=== PATIENT | female | born 1970 | race African-American/Black ===

== ENCOUNTER 2016-12-13 18:20 | Emergency (ER) | payer MEDICAID ==
[~2016-12-13] VITALS: Ht 172.7 cm; Wt 75.5 kg
[~2016-12-13 18:20] MED LIST: NORV5TAB PO; SUMA25TA2 PO
[2016-12-13 18:23] VITALS: BP 137/92; PULSE 112; RESP 14; TEMP 98.1; O2SAT 98
[2016-12-13] MEDS ORDERED: HYDR-3583 PO (18:57)
[2016-12-13] MEDS ORDERED: AMLO10 PO (18:57)
[2016-12-13] MEDS ORDERED: SUMA25TA2 PO (18:57)
[2016-12-13] MEDS ORDERED: ALPR.5 PO (18:57)
--- NOTE | 2016-12-13 19:47 | PD ---
HPI Chief Complaint: Pain: Acute or Chronic Time Seen by Provider: 19:45 Travel History International Travel<30 days: No Contact w/Intl Traveler<30days: No Traveled to known affect area: No History of Present Illness HPI 46-year-old black female presents emergency Department with right knee pain over the past week. She states that the pain is worse with weightbearing and walking. Some relief with elevation. She denies any direct trauma. No laxity or instability. She denies any prior injury. She denies sports in high school. 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 She denies any recent illness. Pain is mild to moderate. Worse with walking and weightbearing. PFSH Past Medical History Arthritis: No Asthma: No Autoimmune Disease: No Blood Disorders: No Anxiety: Yes Depression: No Heart Rhythm Problems: Yes ('FAST HEART RATE") Cancer: Yes (CERVICAL PRE-CANCEROUS) Cardiovascular Problems: Yes (HTN) High Cholesterol: No Chemotherapy: No Chest Pain: No Congestive Heart Failure: No COPD: No Cerebrovascular Accident: No Diabetes: No Diminished Hearing: No Endocrine: No Gastrointestinal Disorders: Yes (ABD PAIN, gastroporesis) GERD: No Glaucoma: No Genitourinary: No Headaches: Yes Hepatitis: No Hiatal Hernia: Yes Heparin Induced Thrombocytopen: No Hypertension: Yes Immune Disorder: No Implanted Vascular Access Dvce: No Musculoskeletal: Yes (BACK PAIN, ) Neurologic: Yes (MIGRAINES) Psychiatric: Yes Reproductive: Yes (FIBROIDS, PRECANCEROUS CELLS, HAD COMPLETE HYSTERECTOMY) Respiratory: Yes (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) Immunizations Current: No Migraines: Yes (last over 1 year ago.) Myocardial Infarction: No Radiation Therapy: No Seizures: No Sickle Cell Disease: No Sleep Apnea: No Thyroid Disease: No Ulcer: No Influenza Vaccination: No PNEUMOCCOCAL Vaccine (Year): 2 ?: Not : 3 Para: 3 Ovarian Cysts: Yes Tubal Ligation: Yes Past Surgical History Abdominal Surgery: Yes (UTERINE FIBROIDS) AICD: No Appendectomy: No Arteriovenous Shunt: No Cardiac Surgery: No Cholecystectomy: No Ear Surgery: No Endocrine Surgery: No Eye Surgery: No Genitourinary Surgery: No Gynecologic Surgery: Yes (FIBROID REMOVAL) Hysterectomy: Yes Insulin Pump: No Joint Replacement: No Neurologic Surgery: No Oral Surgery: No Pacemaker: No Thoracic Surgery: No Other Surgery: Yes (HEMORRHOID,TUBAL,HYST,ADHESIONS,HAND,POLYPS) Social History Alcohol Use: Yes (SOCIALLY) Tobacco Use: Yes (1 PPD) Substance Use: No Allergies-Medications (Allergen,Severity, Reaction): Coded Allergies: Compazine (Verified Allergy, Severe, DYSTONIA, 12/13/16) Reglan (Verified Allergy, Severe, ITCH, 12/13/16) Zofran (Verified Allergy, Severe, TONGUE SWELLING, 12/13/16) Reported Meds & Prescriptions Reported Meds & Active Scripts Active Reported Sumatriptan (Sumatriptan Succinate) 25 Mg Tab 25 Mg PO ONCE PRN If a satisfactory response has not been obtained at 2 hours, a second dose may be administered Norvasc (Amlodipine Besylate) 10 Mg Tab 10 Mg PO DAILY Xanax (Alprazolam) 0.5 Mg Tab 0.5 Mg PO Q4H PRN Hydrocodone-Acetaminophen 10-325 mg Tab 1 Tab PO Q4H PRN Review of Systems Except as stated in HPI: all other systems reviewed are Neg Physical Exam Narrative GENERAL: Well-developed, well-nourished in no acute distress. Nontoxic appearing. HEAD: Normocephalic, atraumatic. EYES: Pupils equal round and reactive. Extraocular motions intact. No scleral icterus. No injection or drainage. ENT: TMs clear without erythema. The external auditory canals clear. Nose: clear . Posterior pharynx is pink and moist. No tonsillar edema or exudate. Uvula midline. Airway patent. NECK: Trachea midline.Supple, nontender, moves head freely. No central bony tenderness or spasm. CARDIOVASCULAR: Regular rate and rhythm without murmurs, gallops, or rubs. RESPIRATORY: Clear to auscultation. Breath sounds equal bilaterally. No wheezes , rales, or rhonchi. GASTROINTESTINAL: Abdomen soft, non-tender, nondistended. No hepato-splenomegaly , or palpable masses. No guarding. EXTREMITIES: No clubbing, cyanosis, or edema. No joint tenderness, effusion, or edema noted. Examination of the right lower extremity reveals no obvious joint effusion. Patient has full range of motion. No laxity. Patient does have meniscal pain on Apley grind. She has no pain in the foot, ankle or hip. She has intact sensation with good distal pulses. BACK: Nontender without deformity or crepitance. No flank tenderness. Data Data Last Documented VS Vital Signs Date Time Temp Pulse Resp B/P Pulse Ox O2 Delivery O2 Flow Rate FiO2 12/13/16 18:23 98.1 112 14 137/92 98 MDM Medical Decision Making Medical Screen Exam Complete: Yes Emergency Medical Condition: Yes Medical Record Reviewed: Yes Differential Diagnosis MDM: High Differential diagnoses: Fracture, sprain, strain, dislocation, contusion, neurovascular injury Narrative Course Patient's evaluation reveals meniscal pain but no evidence of an acute injury. This is right knee pain Diagnosis Primary Impression: Right knee pain Qualified Code: M25.561 - Acute pain of right knee Patient Instructions: General Instructions Additional Instructions: Rest. Elevation. Ice packs for the next 3 days. Erasmo wrap. Limit weightbearing. Medications as directed Follow-up with an orthopedist or your doctor in one week. Return to the ER if any problems Med/Other Pt SpecificInfo: Prescription(s) given Disposition: 01 DISCHARGE HOME Condition: Stable Jairo Lawler Dec 13, 2016 19:47
[2016-12-13] MEDS ORDERED: DICL75TA PO (19:50)
== END 2016-12-13 20:01 | disposition home or self-care (01) ==
LOC: NEPB 18:20
DX: M25.561 Pain in right knee (principal); I10 Essential (primary) hypertension; F17.200 Nicotine dependence, unspecified, uncomplicated; Z87.39 Personal history of other diseases of the musculoskeletal system and connective tissue; Z86.79 Personal history of other diseases of the circulatory system; Z87.19 Personal history of other diseases of the digestive system; Z86.69 Personal history of other diseases of the nervous system and sense organs; Z86.59 Personal history of other mental and behavioral disorders; Z87.42 Personal history of other diseases of the female genital tract; Z87.09 Personal history of other diseases of the respiratory system
CPT/HCPCS: 99283

== ENCOUNTER 2017-01-01 23:21 | Emergency (ER) | payer MEDICAID ==
[~2017-01-01] VITALS: Ht 172.7 cm; Wt 80.0 kg
[~2017-01-01 23:21] MED LIST changes: +ALPR.5 PO; +AMLO10 PO; +DICL75TA PO; +HYDR-3583 PO; -NORV5TAB PO
[2017-01-01 23:24] VITALS: BP 127/84; PULSE 104; RESP 16; TEMP 98.2; O2SAT 98
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
[2017-01-02] MEDS ORDERED: KETOROLAC TROMETHAMINE 60 MG/2 ML (IM) VIAL IM ONE (03:30)
[2017-01-02 03:44] VITALS: BP 128/79
== END 2017-01-02 03:46 | disposition home or self-care (01) ==
LOC: NEPE 23:21
DX: S09.90XA Unspecified injury of head, initial encounter (principal); R11.0 Nausea; I10 Essential (primary) hypertension; F17.210 Nicotine dependence, cigarettes, uncomplicated; Y04.2XXA Assault by strike against or bumped into by another person, initial encounter
CPT/HCPCS: 70450

== ENCOUNTER 2017-06-02 15:59 | Observation (INO) | payer MEDICAID ==
[~2017-06-02] VITALS: Ht 172.7 cm; Wt 78.0 kg
[~2017-06-02 15:59] MED LIST changes: -DICL75TA PO
[2017-06-02 16:00] VITALS: BP 164/83; PULSE 81; RESP 19; TEMP 99.2; O2SAT 99
--- NOTE | 2017-06-02 16:07 | PD ---
Physical Exam Date Seen by Provider: Jun 02, 2017 Time Seen by Provider: 16:05 Narrative 46 YOBF C/O ABD PAIN FOR 2 DAYS. H/O CHRONIC ABD PAIN. +N/V/MALAISE. 07/26 PAIN VS REVIEWED WAITING FOR BED PLACEMENT Data Data Last Documented VS Vital Signs Date Time Temp Pulse Resp B/P Pulse Ox O2 Delivery O2 Flow Rate FiO2 06/02/17 16:00 99.2 81 19 164/83 99 MDM Supervised Visit with TAMMY: Jairo Pride Jun 02, 2017 16:07
[2017-06-02] MEDS ORDERED: SODIUM CHLOR 0.9% 1000 ML INJ 1,000 ML IV SCH ×3 (16:44→21:06)
[2017-06-02] MEDS ORDERED: FAMOTIDINE 20 MG/2 ML VIAL IV PUSH ONE (16:45)
[2017-06-02] MEDS ORDERED: PANTOPRAZOLE SODIUM 40 MG VIAL IVP ONE (16:45)
[2017-06-02] MEDS ORDERED: MORPHINE SULFATE 4 MG/ML INJ IV PUSH ONE ×2 (17:00→20:45)
[2017-06-02] MEDS ORDERED: PROMETHAZINE INJ 25 MG/ML VIAL IM ONE ×2 (17:00→19:30)
--- NOTE | 2017-06-02 17:09 | PD ---
HPI Chief Complaint: Abdominal Pain Time Seen by Provider: 17:03 Travel History International Travel<30 days: No Contact w/Intl Traveler<30days: No Traveled to known affect area: No History of Present Illness HPI 46- year old female presents to the ED complaining of abdominal pain. The patient reports that the pain is in her RUQ and LUQ abdomen for the past two days. She reports she has associated nausea and vomiting for the past two days and has been unable to keep anything down. She describes the pain as sharp and burning, and reports that it is intermittent. She currently rates her pain as a 10/10. She states she took some of her daughter's medicine which she believes was Zantac, and had no relief because she was unable to keep it down. The patient had multiple abdominal surgeries which include: bilateral oophorectomy, hemorrhoidectomy, hysterectomy, and tubal ligation. The patient reports that her medications include Hydrocodone and muscle relaxers, she denies the use of any blood thinners. She denies any vaginal discharge. PFSH Past Medical History Arthritis: No Asthma: No Autoimmune Disease: No Blood Disorders: No Anxiety: Yes Depression: No Heart Rhythm Problems: Yes ('FAST HEART RATE") Cancer: Yes (CERVICAL PRE-CANCEROUS) Cardiovascular Problems: Yes (HTN) High Cholesterol: No Chemotherapy: No Chest Pain: No Congestive Heart Failure: No COPD: No Cerebrovascular Accident: No Diabetes: No Diminished Hearing: No Endocrine: No Gastrointestinal Disorders: Yes (ABD PAIN, gastroporesis) GERD: No Glaucoma: No Genitourinary: No Headaches: Yes Hepatitis: No Hiatal Hernia: Yes Heparin Induced Thrombocytopen: No Hypertension: Yes Immune Disorder: No Implanted Vascular Access Dvce: No Musculoskeletal: Yes (BACK PAIN, ) Neurologic: Yes (MIGRAINES) Psychiatric: Yes Reproductive: Yes (FIBROIDS, PRECANCEROUS CELLS, HAD COMPLETE HYSTERECTOMY) Respiratory: Yes (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) Immunizations Current: No Migraines: Yes (last over 1 year ago.) Myocardial Infarction: No Radiation Therapy: No Seizures: No Sickle Cell Disease: No Sleep Apnea: No Thyroid Disease: No Ulcer: No PNEUMOCCOCAL Vaccine (Year): 2 ?: Unknown : 3 Para: 3 Ovarian Cysts: Yes Tubal Ligation: Yes Past Surgical History Abdominal Surgery: Yes (UTERINE FIBROIDS) AICD: No Appendectomy: No Arteriovenous Shunt: No Cardiac Surgery: No Cholecystectomy: No Ear Surgery: No Endocrine Surgery: No Eye Surgery: No Genitourinary Surgery: No Gynecologic Surgery: Yes (FIBROID REMOVAL) Hysterectomy: Yes Insulin Pump: No Joint Replacement: No Neurologic Surgery: No Oral Surgery: No Pacemaker: No Thoracic Surgery: No Other Surgery: Yes (HEMORRHOID,TUBAL,HYST,ADHESIONS,HAND,POLYPS) Social History Alcohol Use: Yes (SOCIALLY) Tobacco Use: Yes (1 PPD) Substance Use: No Allergies-Medications (Allergen,Severity, Reaction): Coded Allergies: metoclopramide (Unverified Allergy, Severe, ITCH, 05/31/17) ondansetron (Unverified Allergy, Severe, TONGUE SWELLING, 05/31/17) prochlorperazine (Unverified Allergy, Severe, DYSTONIA, 05/31/17) Reported Meds & Prescriptions Reported Meds & Active Scripts Active Reported Omeprazole 40 Mg Cap 40 Mg PO DAILY Sumatriptan (Sumatriptan Succinate) 25 Mg Tab 25 Mg PO ONCE PRN If a satisfactory response has not been obtained at 2 hours, a second dose may be administered Norvasc (Amlodipine Besylate) 10 Mg Tab 10 Mg PO DAILY Xanax (Alprazolam) 0.5 Mg Tab 0.5 Mg PO Q4H PRN Hydrocodone-Acetaminophen 10-325 mg Tab 1 Tab PO Q4H PRN Review of Systems General / Constitutional: No: Fever, Chills, Weight Gain, Weight Loss, Other Eyes: No: Diploplia, Blurred Vision, Photophobia, Drainage, Redness, Foreign Body Sensation, Pain, Tearing, Blind Spots, Visual changes, Blindness, Other HENT: No: Headaches, Vertigo, Lightheadedness, Sore Throat, Rhinitis, Rhinorrhea, Congestion, Nosebleed, Neck Stiffness, Neck Pain, Masses, Gingival Bleeding, Dental Difficulties, Ear Discharge, Earache, Other Cardiovascular: No: Chest Pain or Discomfort, Palpitations, Irregular Rhythm, Tachycardia, Diaphoresis, Syncope, Dyspnea on exertion, Varicosities, Edema, Cyanosis, Varicosities, Phlebitis, Claudication, Other Respiratory: No: Cough, Shortness of Breath, Wheezing, Sneezing, Orthopnea, Hemoptysis, Stridor, Night Sweats, Pleuritic Pain, Other Gastrointestinal: Positive: Nausea, Vomiting, Abdominal Pain, No: Diarrhea, Hematemesis, Hematochezia, Constipation, Changes in Bowel Habits, Indigestion, Dysphagia, Loss of Appetite, Other Genitourinary: No: Urgency, Frequency, Dysuria, Nocturia, Hematuria, Decreased Urinary Output, Oliguria, Hesitancy, Dribbling, Incontinence, Pelvic Pain, Flank Pain, Dyspareunia, Discharge, Dysmenorrhea, Menorrhagia, Metorrhagia, Vaginal Bleeding, Other Musculoskeletal: No: Myalgias, Arthralgias, Limited ROM, Weakness, Cramping, Edema, Pain, Atrophy, Other Skin: No Rash, No Itching, No Dryness, No Lumps, No Hives, No Change in Pigmentation, No Change in nails, No Alopecia, No Lesions, No Breast Lumps, No Breast Tenderness, No Breast Swelling, No Other Neurologic: No: Weakness, Dizziness, Syncope, Focal Abnormalities, Coordination Problem, Tremor, Ataxia, Headache, Change in Mentation, Slurred Speech, Paresthesia, Incontinence, Seizures, Sensory Disturbance, Other Psychiatric: No: Anxiety, Depression, Suicidal Ideations, Disorder of Thought, Mood Disorder, Substance Abuse, Homicidal Ideation, Other Endocrine: No: Heat Intolerance, Cold Intolerance, Polyuria, Polydipsia, Other Hematologic/Lymphatic: No: Easy Bruising, Lymph Node Enlargement, Other Physical Exam Narrative GENERAL: SKIN: Warm and dry. HEAD: Atraumatic. Normocephalic. EYES: Pupils equal and round. No scleral icterus. No injection or drainage. ENT: No nasal bleeding or discharge. Mucous membranes pink and moist. NECK: Trachea midline. No JVD. CARDIOVASCULAR: Regular rate and rhythm. No S3, S4, or murmurs. RESPIRATORY: No accessory muscle use. Clear to auscultation. Breath sounds equal bilaterally. No wheezing, rales, or rhonchi. GASTROINTESTINAL: Tender to palpation in RUQ and LUQ, more so in RUQ. Abdomen soft, nondistended. Hepatic and splenic margins not palpable. MUSCULOSKELETAL: Extremities without clubbing, cyanosis, or edema. No obvious deformities. NEUROLOGICAL: Awake and alert. No obvious cranial nerve deficits. Motor grossly within normal limits. Five out of 5 muscle strength in the arms and legs. Normal speech. PSYCHIATRIC: Appropriate mood and affect; insight and judgment normal. Data Data Last Documented VS Vital Signs Date Time Temp Pulse Resp B/P Pulse Ox O2 Delivery O2 Flow Rate FiO2 06/02/17 19:00 85 16 186/105 96 Room Air 06/02/17 16:00 99.2 Orders Complete Blood Count With Diff (06/02/17 16:44) Comprehensive Metabolic Panel (06/02/17 16:44) Lipase (06/02/17 16:44) Lactic Acid (06/02/17 16:44) Urinalysis - C+S If Indicated (06/02/17 16:44) Iv Access Insert/Monitor (06/02/17 16:44) Pantoprazole Inj (Protonix Inj) (06/02/17 16:45) Sodium Chlor 0.9% 1000 Ml Inj (Ns 1000 M (06/02/17 16:44) Famotidine Inj (Pepcid Inj) (06/02/17 16:45) Promethazine Inj (Phenergan Inj) (06/02/17 17:00) Morphine Inj (Morphine Inj) (06/02/17 17:00) Ct Abd/Pel W Iv Contrast(Rout) (06/02/17 16:55) Vascular Access Team Consult/P PRN (06/02/17 17:28) Vascular Poc Ultrasound (06/02/17 ) Promethazine Inj (Phenergan Inj) (06/02/17 19:30) Iohexol 350 Inj (Omnipaque 350 Inj) (06/02/17 19:17) Diphenhydramine Inj (Benadryl Inj) (06/02/17 19:30) Morphine Inj (Morphine Inj) (06/02/17 20:45) Sodium Chlor 0.9% 1000 Ml Inj (Ns 1000 M (06/02/17 20:32) Admit Order (Ed Use Only) (06/02/17 21:07) Labs Laboratory Tests Test 06/02/17 06/02/17 17:08 17:15 Lactic Acid Level 1.1 mmol/L White Blood Count 6.2 TH/MM3 Red Blood Count 4.55 MIL/MM3 Hemoglobin 14.3 GM/DL Hematocrit 42.0 % Mean Corpuscular Volume 92.3 FL Mean Corpuscular Hemoglobin 31.3 PG Mean Corpuscular Hemoglobin 33.9 % Concent Red Cell Distribution Width 14.0 % Platelet Count 261 TH/MM3 Mean Platelet Volume 9.6 FL Neutrophils (%) (Auto) 81.0 % Lymphocytes (%) (Auto) 17.0 % Monocytes (%) (Auto) 1.9 % Eosinophils (%) (Auto) 0.0 % Basophils (%) (Auto) 0.1 % Neutrophils # (Auto) 5.0 TH/MM3 Lymphocytes # (Auto) 1.1 TH/MM3 Monocytes # (Auto) 0.1 TH/MM3 Eosinophils # (Auto) 0.0 TH/MM3 Basophils # (Auto) 0.0 TH/MM3 CBC Comment DIFF FINAL Differential Comment Sodium Level 141 MEQ/L Potassium Level 3.7 MEQ/L Chloride Level 102 MEQ/L Carbon Dioxide Level 29.6 MEQ/L Anion Gap 9 MEQ/L Blood Urea Nitrogen 13 MG/DL Creatinine 0.81 MG/DL Estimat Glomerular Filtration 93 ML/MIN Rate Random Glucose 123 MG/DL Calcium Level 10.1 MG/DL Total Bilirubin 0.4 MG/DL Aspartate Amino Transf 13 U/L (AST/SGOT) Alanine Aminotransferase 15 U/L (ALT/SGPT) Alkaline Phosphatase 73 U/L Total Protein 10.3 GM/DL Albumin 5.5 GM/DL Lipase 121 U/L [facility] Medical Decision Making Medical Screen Exam Complete: Yes Emergency Medical Condition: Yes Medical Record Reviewed: Yes Interpretation(s) CBC & BMP Diagram 06/02/17 17:15 LFTS WNL Lipase WNL Last Impressions Abdomen/Pelvis CT 06/02/17 1655 Signed Impressions: Service Date/Time: May 19:08 - CONCLUSION: 1. No acute finding on abdomen and pelvic CT. Nonobstructing 2 mm calculus mid pole right kidney. Small hiatal hernia. No bowel obstruction, free air or free fluid. Jairo Oliveros MD Differential Diagnosis Intractable nausea and vomiting versus abdominal pain versus chronic pain versus gastritis versus gastritis versus normal exam Narrative Course 46-year-old female that presents to the ED for evaluation of nausea and vomiting. Patient was properly examined and was found to have signs and symptoms of unclear etiology. Patient does have some tenderness to palpation but appears to be diffuse. Abdomen for the most part is benign but she is actively throwing up. Labs and imaging were ordered. Patient was given Phenergan as she cannot really take anything else. She was given Benadryl morphine. Fluids were given. Labs and imaging came back and showed no sign of acute disease. Patient unfortunately still throwing up. She cannot tolerate by mouth challenge. Patient has been given 50 mg of Phenergan so far and 50 of Benadryl with no relief. No blood noted. Unclear etiology of this but because of her continues vomiting at do recommend observation for this. Call to [facility] placed. Dr Randall agrees to obs. Diagnosis Primary Impression: Nausea & vomiting Qualified Code: R11.2 - Intractable vomiting with nausea, unspecified vomiting type Admitting Information Admitting Physician Requests: Observation Sherif Patel Jun 02, 2017 17:09
[2017-06-02] MEDS ORDERED: OMEP40CA2 PO (18:07)
[2017-06-02 18:26] LABS: ALT (GPT) 15 U/L (10-53); ANION GAP 9 MEQ/L (5-15); AST (GOT) 13 U/L (15-37); BICARBONATE 29.6 MEQ/L (21.0-32.0); BLOOD UREA NITROGEN 13 MG/DL (7-18); CHLORIDE 102 MEQ/L (98-107); GLOMERULAR FILTRATION RATE 93 ML/MIN (>89); POTASSIUM 3.7 MEQ/L (3.5-5.1); SODIUM (NA) 141 MEQ/L (136-145)
[2017-06-02 18:29] LABS: ALKALINE PHOSPHATASE 73 U/L (45-117); TOTAL BILIRUBIN ADULT 0.4 MG/DL (0.2-1.0)
[2017-06-02 18:34] LABS: BASOPHIL % 0.1 % (0.0-2.0); HEMO FLAGS DIFF FINAL; LYMPHOCYTE # 1.1 TH/MM3 (1.0-4.8); MEAN CELL VOLUME 92.3 FL (80.0-100.0); MEAN CORPUSCULAR HEMOGLOBIN 31.3 PG (27.0-34.0); MEAN CORPUSCULAR HGB CONC 33.9 % (32.0-36.0); MONO % 1.9 % (0.0-8.0); PLATELET COUNT 261 TH/MM3 (150-450); RED BLOOD COUNT 4.55 MIL/MM3 (4.00-5.30); WHITE BLOOD COUNT 6.2 TH/MM3 (4.0-11.0)
[2017-06-02 19:00] VITALS: BP 186/105; PULSE 85; RESP 16; O2SAT 96
[2017-06-02] MEDS ORDERED: IOHEXOL 350 MG/ML 10 ML VIAL (for RAD DIAG) IV ONE (19:17)
[2017-06-02] MEDS ORDERED: diphenhydrAMINE HCL 50 MG/ML VIAL IV PUSH ONE (19:30)
--- NOTE | 2017-06-02 20:01 | RADRPT ---
EXAM DATE/TIME: 06/02/2017 19:08 [place] COMPARISON: No previous studies available for comparison. INDICATIONS : Abdomen pain for two days with nausea and vomiting. IV CONTRAST: 98 cc Omnipaque 350 (iohexol) IV ORAL CONTRAST: No oral contrast ingested. RADIATION DOSE: 7.33 CTDIvol (mGy) MEDICAL HISTORY : Hypertension. Hernia, hiatal. SURGICAL HISTORY : Hysterectomy. Tubal ligation. ENCOUNTER: Initial ACUITY: 2 days PAIN SCALE: 10/10 LOCATION: ABDOMEN TECHNIQUE: Volumetric scanning of the abdomen and pelvis was performed. Using automated exposure control and ad justment of the mA and/or kV according to patient size, radiation dose was kept as low as reasonably achievable to obtain optimal diagnostic quality images. DICOM format image data is available electro nically for review and comparison. FINDINGS: Minimal dependent atelectasis in the lungs. No acute findings in the liver, spleen, adrenals, kidneys or pancreas. There is a nonobstructing 2 mm calculus mid pole right kidney. No calcified gallstones or biliary ductal dilatation. There is no bowel obstruction. No free air or free fluid. No adenopathy. CONCLUSION: 1. No acute finding on abdomen and pelvic CT. Nonobstructing 2 mm calculus mid pole right kidney. Sma ll hiatal hernia. No bowel obstruction, free air or free fluid. Jairo Oliveros MD on June 02, 2017 at 19:53 Board Certified Radiologist. This report was verified electronically.
[2017-06-02 21:00] VITALS: BP 166/89; PULSE 85; RESP 16; O2SAT 96
--- NOTE | 2017-06-02 21:12 | HHI.HP ---
HPI Service [facility] Primary Care Physician Sal Cote MD Admission Diagnosis intractable nausea and vomit Diagnoses: (1) Intractable nausea and vomiting Diagnosis: Principal (2) Anxiety Diagnosis: Principal (3) HTN (hypertension) Diagnosis: Principal (4) Tobacco abuse Diagnosis: Principal Travel History International Travel<30 Days: No Contact w/Intl Traveler <30 Da: No Traveled to Known Affected Are: No History of Present Illness This is a 46-year-old female with a PMH of HTN and Anxiety who presented ER with complaints of abdominal pain in addition to multiple episodes of nausea and vomiting x2 days. Denies fever, chills or diarrhea. Reports unable to take PO due to ongoing nausea/vomiting. On arrival, BP 164/83, HR 81, O2 sat 99 % on RA, Temp 99.2. CBC unremarkable. Chemistry essentially unremarkable. CT Abd/Pelvis w/ no acute findings, nonobstructing 2 mm calculus midpole right kidney. U/a pending. S/p multiple doses of Phenergan, Morphine and Pepcid w/ minimal relief. Failed PO challenge. Review of Systems Except as stated in HPI: all other systems reviewed are Neg ROS: 14 point review of systems otherwise negative. Past Family Social History Past Medical History PMH: HTN and Anxiety Past Surgical History PAST SURGICAL HISTORY: Fibroid Removal, Tubal Ligation Allergies: Coded Allergies: metoclopramide (Unverified Allergy, Severe, ITCH, 05/31/17) ondansetron (Unverified Allergy, Severe, TONGUE SWELLING, 05/31/17) prochlorperazine (Unverified Adverse Reaction, Severe, DYSTONIA, 06/02/17) Family History PAST FAMILY HISTORY: Reviewed. No h/o DM or CAD Social History PAST SOCIAL HISTORY: Occasional alcohol. Smokes 1ppd. Negative for drugs. Physical Exam Vital Signs Vital Signs Date Time Temp Pulse Resp B/P Pulse Ox O2 Delivery O2 Flow Rate FiO2 06/02/17 19:00 85 16 186/105 96 Room Air 06/02/17 16:00 99.2 81 19 164/83 99 Physical Exam PE: GENERAL: Middle-aged female in mild distress secondary to ongoing nausea/ vomiting HEENT: PERRLA, EOMI. No scleral icterus or conjunctival pallor. No lid lag or facial droop. CARDIOVASCULAR: Regular rate and rhythm. No obvious murmurs to auscultation. No chest tenderness to palpation. RESPIRATORY: No obvious rhonchi or wheezing. Clear to auscultation. Breath sounds equal bilaterally. GASTROINTESTINAL: Abdomen soft, mild generalized tenderness to palpation, nondistended. BS normal. MUSCULOSKELETAL: Extremities without clubbing, cyanosis, or edema. No obvious deformities. NEUROLOGICAL: Awake, alert and oriented x4. No focal neurologic deficits. Moving both upper and lower extremities spontaneously. Laboratory Laboratory Tests Test 06/02/17 06/02/17 17:08 17:15 Lactic Acid Level 1.1 White Blood Count 6.2 Red Blood Count 4.55 Hemoglobin 14.3 Hematocrit 42.0 Mean Corpuscular Volume 92.3 Mean Corpuscular Hemoglobin 31.3 Mean Corpuscular Hemoglobin 33.9 Concent Red Cell Distribution Width 14.0 Platelet Count 261 Mean Platelet Volume 9.6 Neutrophils (%) (Auto) 81.0 Lymphocytes (%) (Auto) 17.0 Monocytes (%) (Auto) 1.9 Eosinophils (%) (Auto) 0.0 Basophils (%) (Auto) 0.1 Neutrophils # (Auto) 5.0 Lymphocytes # (Auto) 1.1 Monocytes # (Auto) 0.1 Eosinophils # (Auto) 0.0 Basophils # (Auto) 0.0 CBC Comment DIFF FINAL Differential Comment Sodium Level 141 Potassium Level 3.7 Chloride Level 102 Carbon Dioxide Level 29.6 Anion Gap 9 Blood Urea Nitrogen 13 Creatinine 0.81 Estimat Glomerular Filtration 93 Rate Random Glucose 123 Calcium Level 10.1 Total Bilirubin 0.4 Aspartate Amino Transf 13 (AST/SGOT) Alanine Aminotransferase 15 (ALT/SGPT) Alkaline Phosphatase 73 Total Protein 10.3 Albumin 5.5 Lipase 121 Result Diagram: 06/02/17171406/02/171714 Assessment and Plan Problem List: (1) Intractable nausea and vomiting ICD Code: R11.2 Status: Acute (2) Anxiety ICD Code: F41.9 Status: Acute (3) HTN (hypertension) ICD Code: I10 Status: Chronic (4) Tobacco abuse ICD Code: Z72.0 Status: Acute Assessment and Plan A/P: 1. Intractable N/V: w/ associated abdominal pain, no fever, chills or diarrhea. Labs unremarkable. CT Abd/Pelvis w/ no acute findings, images reviewed by me. S/p multiple doses of Phenergan and Morphine w/ minimal relief , failed PO challenge. Admit for Observation, diet as tolerated, IVF, analgesics/antiemetics as needed. Repeat labs in am. 2. Anxiety: On Xanax at home, will switch to Ativan IV as unable to take PO at the moment. 3. HTN: BP 160-180s, likely compounded by nausea/vomiting, not on home medications, monitor BP. 4. Tobacco Abuse: Pt counselled. Ativan/NicoDerm prn if needed. 5. DVT Prophylaxis: SCD/Teds. 6. Social work for d/c planning as needed. 7. Case discussed w/ ER physician at length. Irma Randall MD Jun 02, 2017 21:12
[2017-06-02] MEDS ORDERED: LORazepam 2 MG/ML VIAL IV PUSH PRN (21:15)
[2017-06-02] MEDS ORDERED: TRIMETHOBENZAMIDE INJ 200 MG/2 ML VIAL IM PRN (21:15)
[2017-06-02] MEDS ORDERED: ACETAMINOPHEN/HYDROcodone 325 MG/5 MG TAB PO PRN (21:15)
[2017-06-02] MEDS ORDERED: SODIUM CHLORIDE 0.9% FLUSH 10 ML FLUSH IV FLUSH PRN (21:15)
[2017-06-02] MEDS ORDERED: LACTULOSE SYRUP 20 GM/30 ML CUP PO PRN (21:15)
[2017-06-02] MEDS ORDERED: ONDANSETRON HCL 4 MG/2 ML VIAL IVP PRN (21:15)
[2017-06-02] MEDS ORDERED: SENNOSIDES 8.6 MG TAB PO PRN (21:15)
[2017-06-02] MEDS ORDERED: MAGNESIUM HYDROXIDE SUSP 30 ML CUP PO PRN (21:15)
[2017-06-02] MEDS ORDERED: ACETAMINOPHEN 325 MG TAB PO PRN (21:15)
[2017-06-02] MEDS ORDERED: BISACODYL 10 MG SUPP RECTAL PRN (21:15)
[2017-06-02 21:53] VITALS: BP 166/88
[2017-06-02] MEDS: MORPHINE SULFATE 4 MG/ML INJ IV PRN (23:39)
[2017-06-02] MEDS: PROMETHAZINE INJ 25 MG/ML VIAL IM PRN (23:39)
[2017-06-03] VITALS: BP 158/91; PULSE 88; RESP 20; TEMP 99.7; O2SAT 100
[2017-06-03] MEDS: MORPHINE SULFATE 4 MG/ML INJ IV PRN ×2 (04:48→09:43)
[2017-06-03 05:57] VITALS: BP 130/76; PULSE 92; RESP 18; TEMP 98.6; O2SAT 99
--- NOTE | 2017-06-03 08:53 | HHI.PR ---
Subjective Remarks Follow up for intractable nausea/vomiting. The patient reports feeling slightly better today. Reports intermittent nausea but no vomiting since yesterday. She was able to sleep well. She reports some mild left sided abdominal discomfort which she attributes to the intractable vomiting prior to arrival. Denies fevers /chills. Denies sick contacts. Denies any NSAID use. She states she follows with gastroenterology Dr. Faust for yearly EGD/colonoscopies. She says she was diagnosed with colon polyps and hiatal hernia in the past. She takes prilosec for GERD. Objective Vitals Vital Signs Date Time Temp Pulse Resp B/P Pulse Ox O2 Delivery O2 Flow Rate FiO2 06/03/17 05:57 98.6 92 18 130/76 99 06/03/17 05:21 18 06/03/17 00:00 99.7 88 20 158/91 100 06/02/17 21:53 85 16 166/88 98 06/02/17 21:00 85 16 166/89 96 Room Air 06/02/17 19:00 85 16 186/105 96 Room Air 06/02/17 16:00 99.2 81 19 164/83 99 I/O 06/02/17 06/02/17 06/02/17 06/03/17 06/03/17 06/03/17 07:00 15:00 23:00 07:00 15:00 23:00 Output Total 200 ml Balance -200 ml Output Emesis 200 ml Result Diagram: 06/02/17 1715 06/02/17 1715 Imaging Last Impressions Abdomen/Pelvis CT 06/02/171654 Signed Impressions: Service Date/Time: May 19:08 - CONCLUSION: 1. No acute finding on abdomen and pelvic CT. Nonobstructing 2 mm calculus mid pole right kidney. Small hiatal hernia. No bowel obstruction, free air or free fluid. Jairo Oliveros MD Objective Remarks GENERAL: Well-nourished, well-developed middle aged female patient in [facility]. SKIN: Warm and dry. No rash. HEENT: Normocephalic. Atraumatic.Pupils equal and round. Mucous membranes pink and moist. CARDIOVASCULAR: Regular rate and rhythm. S1, S2 noted. No murmur appreciated. RESPIRATORY: No accessory muscle use. Clear to auscultation. Breath sounds equal bilaterally. GASTROINTESTINAL: Abdomen soft, non-tender, nondistended. Normoactive bowel sounds x4. MUSCULOSKELETAL: No obvious deformities. Extremities without clubbing, cyanosis , or edema. NEUROLOGICAL: Awake and alert. No obvious cranial nerve deficits. Motor grossly within normal limits. Normal speech. PSYCHIATRIC: Appropriate mood and affect; insight and judgment normal. Medications and IVs Current Medications Medications (Trade) Dose Ordered Sig/Ghazala Route Start Time Stop Time Status Last Admin (Ativan Inj) 1 mg Q2H PRN IV PUSH 06/02/17 21:15 (Phenergan Inj) 25 mg Q4H PRN IM 06/02/17 21:15 06/02/17 23:39 (Tigan Inj) 200 mg Q6H PRN IM 06/02/17 21:15 Pantoprazole Sodium 40 mg 40 mg Q12H IV PUSH 06/03/17 09:00 (NS 1000 ml Inj) 1,000 ml @ 100 mls/hr Q10H IV 06/02/17 21:06 06/02/17 23:40 (NS Flush) 2 ml UNSCH PRN IV FLUSH 06/02/17 21:15 (NS Flush) 2 ml BID IV FLUSH 06/03/17 09:00 (Tylenol) 650 mg Q6H PRN PO 06/02/17 21:15 06/03/17 06:06 (Hammond 5-325 Mg) 1 tab Q4H PRN PO 06/02/17 21:15 (Morphine Inj) 2 mg Q3H PRN IV 06/02/17 21:15 06/03/17 04:48 (Isabelle-Colace) 1 tab BID PO 06/03/17 09:00 (Milk Of Magnesia Liq) 30 ml Q12H PRN PO 06/02/17 21:15 (Senokot) 17.2 mg Q12H PRN PO 06/02/17 21:15 (Dulcolax Supp) 10 mg DAILY PRN RECTAL 06/02/17 21:15 (Lactulose Liq) 30 ml DAILY PRN PO 06/02/17 21:15 A/P Problem List: (1) Intractable nausea and vomiting ICD Code: R11.2 Status: Acute (2) Anxiety ICD Code: F41.9 Status: Acute (3) HTN (hypertension) ICD Code: I10 Status: Chronic (4) Tobacco abuse ICD Code: Z72.0 Status: Acute Assessment and Plan 46-year-old female with a PMH of HTN and Anxiety who presented ER with complaints of abdominal pain in addition to multiple episodes of nausea and vomiting x2 days. Intractable N/V: w/ associated abdominal pain, no fever/chills/diarrhea. Labs unremarkable. CT Abd/Pelvis w/ no acute findings, images reviewed by me. S/p multiple doses of Phenergan and Morphine w/ minimal relief, failed PO challenge. Admitted to Observation. Advance diet as tolerated. Supportive treatment with IVF, analgesics/antiemetics as needed. Repeat labs. Anxiety: On Xanax at home, will switch to Ativan IV as unable to take PO at the moment. HTN: BP 160-180s, likely compounded by nausea/vomiting, not on home medications , monitor BP, improved this morning. Tobacco Abuse: Pt counselled. Ativan/NicoDerm prn if needed. DVT Prophylaxis: SCD/Teds. Discharge Planning Discharge pending further clinical improvement and tolerating oral intake. Possibly discharge this afternoon or tomorrow. 1040hrs: Patient requesting additional pain medications, stating IV morphine didn't work. RN reports patient sleeping in room most of the time. Patient did not appear to be in significant pain when I saw her prior. Give Bentyl x1. 1300hrs: Patient tolerated her meals and wants to go home. No further nausea/ vomiting. She is requesting prescription for phenergan. Repeat labs showed hypokalemia, K 3.1, given KCl 40meq po. Stable for discharge. Discharge patient to home Condition on discharge: Improved Heart Healthy Diet as tolerated Ad Antonietta activity Rx written: Phenergan 12.5mg q6h prn N/V #12 Follow-up with primary care physician within 1 week Francoise Nam PA-C Jun 03, 2017 08:53
[2017-06-03] MEDS ORDERED: DOCUSATE SODIUM 50 MG/SENNA 8.6 MG TAB PO SCH (09:00)
[2017-06-03] MEDS ORDERED: SODIUM CHLORIDE 0.9% FLUSH 10 ML FLUSH IV FLUSH SCH (09:00)
[2017-06-03] MEDS ORDERED: PANTOPRAZOLE SODIUM 40 MG VIAL IV PUSH SCH (09:00)
[2017-06-03] MEDS: PROMETHAZINE INJ 25 MG/ML VIAL IM PRN (09:43)
[2017-06-03 11:53] VITALS: BP 135/84; PULSE 78; RESP 18; TEMP 97.8; O2SAT 95
[2017-06-03] MEDS ORDERED: DICYCLOMINE HCL 10 MG CAP PO ONE (12:00)
[2017-06-03 12:19] LABS: BASOPHIL % 0.5 % (0.0-2.0); EOSINOPHIL % 0.2 % (0.0-4.0); HEMO FLAGS DIFF FINAL; LYMPH % 32.9 % (9.0-44.0); LYMPHOCYTE # 2.2 TH/MM3 (1.0-4.8); MEAN CELL VOLUME 90.8 FL (80.0-100.0); MEAN CORPUSCULAR HEMOGLOBIN 31.5 PG (27.0-34.0); MEAN CORPUSCULAR HGB CONC 34.7 % (32.0-36.0); MONO % 7.1 % (0.0-8.0); NEUT % 59.3 % (16.0-70.0); PLATELET COUNT 247 TH/MM3 (150-450); RED BLOOD COUNT 3.74 MIL/MM3 (4.00-5.30); RED CELL DISTRIBUTION WIDTH 14.1 % (11.6-17.2); WHITE BLOOD COUNT 6.7 TH/MM3 (4.0-11.0)
--- NOTE | 2017-06-03 12:44 | HHI.DCPOC ---
Discharge Care Plan Diagnosis: (1) Nausea & vomiting Goals to Promote Your Health * To prevent worsening of your condition and complications * To maintain your health at the optimal level Directions to Meet Your Goals Take your medications as prescribed Follow your dietary instruction Follow activity as directed Keep your appointments as scheduled Take your immunizations and boosters as scheduled If your symptoms worsen call your PCP, if no PCP go to Urgent Care Center or Emergency Room Smoking is Dangerous to Your Health. Avoid second hand smoke Call the 24-hour hour crisis hotline for domestic abuse at Francoise Nam PA-C Jun 03, 2017 12:44
[2017-06-03 12:59] LABS: ALKALINE PHOSPHATASE 50 U/L (45-117); ALT (GPT) 12 U/L (10-53); ANION GAP 8 MEQ/L (5-15); AST (GOT) 17 U/L (15-37); BICARBONATE 27.9 MEQ/L (21.0-32.0); BLOOD UREA NITROGEN 9 MG/DL (7-18); CHLORIDE 107 MEQ/L (98-107); GLOMERULAR FILTRATION RATE 110 ML/MIN (>89); POTASSIUM 3.1 MEQ/L (3.5-5.1); SODIUM (NA) 143 MEQ/L (136-145); TOTAL BILIRUBIN ADULT 0.4 MG/DL (0.2-1.0)
[2017-06-03] MEDS ORDERED: PROM25TA10 PO (13:14)
[2017-06-03] MEDS ORDERED: POTASSIUM CHLORIDE 20 MEQ CONTROLLED RELEASE TAB PO ONE (13:15)
== END 2017-06-03 14:01 | disposition home or self-care (01) ==
LOC: NEPE 15:59 → NEDA 21:08 → NEPFCDU 22:02
PROVIDERS: ADMIT Hospitalist; ATTEND Hospitalist
DX: R11.2 Nausea with vomiting, unspecified (principal); R10.11 Right upper quadrant pain; R10.12 Left upper quadrant pain; I10 Essential (primary) hypertension; F17.200 Nicotine dependence, unspecified, uncomplicated; F41.9 Anxiety disorder, unspecified; K21.9 Gastro-esophageal reflux disease without esophagitis; Z79.899 Other long term (current) drug therapy
CPT/HCPCS: 74177; 76937; 80053; 83605; 83690; 85025; 96361; 96372; 96374; 96375; 96376; 99285; C9113; G0378; J1200; J2270; J2550; J7030; Q9967

== ENCOUNTER 2017-12-12 02:43 | Emergency (ER) | payer MEDICAID ==
[~2017-12-12] VITALS: Ht 167.6 cm; Wt 80.0 kg
[~2017-12-12 02:43] MED LIST changes: +OMEP40CA2 PO; +PROM25TA10 PO
[2017-12-12 02:47] VITALS: BP 148/84; PULSE 101; RESP 22; TEMP 98.9; O2SAT 99
--- NOTE | 2017-12-12 03:02 | PD ---
HPI Chief Complaint: Abdominal Pain Time Seen by Provider: 02:51 Travel History International Travel<30 days: No Contact w/Intl Traveler<30days: No Traveled to known affect area: No History of Present Illness HPI The patient is a 47 year old female who presents to the [facility] emergency department with a history of nausea and vomiting that began yesterday morning, at 9 AM on Tuesday. The patient reports that she has had nausea and vomiting too many times to count. The patient reports that she has lower abdominal pain worse in the right lower quadrant of the abdomen. The patient reports that the pain is a burning sensation. The patient reports that the pain has been constant. She denies any alleviating or aggravating factors per she reports that she last moved her bowels yesterday. She denies having any changes in her bowel movements. The patient does report having a history of chronic intermittent abdominal pain and nausea vomiting in the past that is thought to be related to a history of acid reflux, gastritis, and gastroparesis. The patient is followed by her primary care physician for this, Dr. Coet. The patient is on hydrocodone chronically for chronic abdominal pain as well as chronic back pain. She reports that she has not seen a plating and point assembly supervisor in years. She reports that Dr. Cote recently referred her again to the plating and point assembly supervisor approximately a month ago. The patient reports that she has not been able to keep down her hydrocodone over the last 24 hours. She reports that her Phenergan orally has not been helping. On review of systems otherwise, the patient denies having any recent fevers, cough, congestion, neck pain, chest pain, shortness of breath, urinary symptoms, or neurologic symptoms. [facility] Past Medical History Narrative Medical The patient's past medical history is significant for gastritis, hiatal hernia, acid reflux, gastroparesis, chronic abdominal pain thought to be related to adhesions, history of colon polyps, history of chronic low back pain related to degenerative disc disease, history of anxiety disorder, history of cervical dysplasia, depression, headaches, hypertension. Arthritis: No Asthma: No Autoimmune Disease: No Blood Disorders: No Anxiety: Yes Depression: No Heart Rhythm Problems: Yes ('FAST HEART RATE") Cancer: Yes (CERVICAL PRE-CANCEROUS) Cardiovascular Problems: Yes High Cholesterol: No Chemotherapy: No Chest Pain: No Congestive Heart Failure: No COPD: No Cerebrovascular Accident: No Diabetes: No Diminished Hearing: No Endocrine: No Gastrointestinal Disorders: Yes (GASTROPARESIS ) GERD: Yes Glaucoma: No Genitourinary: No Headaches: Yes Hepatitis: No Hiatal Hernia: Yes Heparin Induced Thrombocytopen: No Hypertension: Yes Immune Disorder: No Implanted Vascular Access Dvce: No Musculoskeletal: Yes (BACK PAIN, ) Neurologic: Yes (MIGRAINES) Psychiatric: Yes Reproductive: Yes (FIBROIDS, PRECANCEROUS CELLS, HAD COMPLETE HYSTERECTOMY) Respiratory: Yes (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 Abdominal Surgery: Yes (UTERINE FIBROIDS) AICD: No Appendectomy: No Arteriovenous Shunt: No Cardiac Surgery: No Cholecystectomy: No Ear Surgery: No Endocrine Surgery: No Eye Surgery: No Genitourinary Surgery: No Gynecologic Surgery: Yes (HYSTERECTOMY, TUBAL LIGATION ) Hysterectomy: Yes Insulin Pump: No Joint Replacement: No Neurologic Surgery: No Oral Surgery: No Pacemaker: No Thoracic Surgery: No Other Surgery: Yes (HEMORRHOID,ADHESIONS,HAND,POLYPS) Social History Alcohol Use: Yes (SOCIALLY) Tobacco Use: Yes (1 PPD) Substance Use: No Allergies-Medications (Allergen,Severity, Reaction): Coded Allergies: metoclopramide (Unverified Allergy, Severe, ITCH, 12/12/17) ondansetron (Unverified Allergy, Severe, TONGUE SWELLING, 12/12/17) prochlorperazine (Unverified Adverse Reaction, Severe, DYSTONIA, 12/12/17) Reported Meds & Prescriptions Reported Meds & Active Scripts Active Phenergan Supp (Promethazine HCl) 25 Mg Supp 25 Mg RECTAL Q6H PRN Phenergan (Promethazine HCl) 25 Mg Tablet 12.5 Mg PO Q6H PRN Reported Omeprazole 40 Mg Cap 40 Mg PO DAILY Sumatriptan (Sumatriptan Succinate) 25 Mg Tab 25 Mg PO ONCE PRN If a satisfactory response has not been obtained at 2 hours, a second dose may be administered Norvasc (Amlodipine Besylate) 10 Mg Tab 10 Mg PO DAILY Xanax (Alprazolam) 0.5 Mg Tab 0.5 Mg PO Q4H PRN Hydrocodone-Acetaminophen 10-325 mg Tab 1 Tab PO Q4H PRN Review of Systems Except as stated in HPI: all other systems reviewed are Neg General / Constitutional: No: Fever Eyes: No: Visual changes HENT: No: Headaches Cardiovascular: No: Chest Pain or Discomfort Respiratory: No: Shortness of Breath Gastrointestinal: Positive: Nausea, Vomiting, Abdominal Pain, No: Diarrhea, Changes in Bowel Habits, Indigestion, Loss of Appetite Genitourinary: No: Dysuria Musculoskeletal: No: Pain Skin: No Rash Neurologic: No: Weakness Psychiatric: No: Depression Endocrine: No: Polydipsia Hematologic/Lymphatic: No: Easy Bruising Physical Exam Narrative General: The patient is a well-developed well-nourished female, lying on her side, intermittently crying on exam. Otherwise in no acute distress she is holding her abdomen. Head and Neck exam: Head is normocephalic atraumatic. Eyes: EOMI, pupils are equal round and reactive to light. Nose: Midline septum with pink mucous membranes Mouth: Dentition unremarkable. Moist mucus membranes. Posterior oropharynx is not erythematous. No tonsillar hypertrophy. Uvula midline. Airway patent. Neck: No palpable lymphadenopathy. No nuchal rigidity. No thyromegaly. Cardiovascular: Sinus tachycardia in the low 100 without murmurs, gallops, or rubs. No pulse deficit to the extremities on simultaneous auscultation and palpation of her radial artery. Lungs: Clear to auscultation bilaterally. No wheezes, rhonchi, or rales. Abdomen: Soft, with tenderness on palpation along bilateral lower quadrants of abdomen and the suprapubic area with pain that is worse on the right compared to the left no guarding, rebound, or rigidity. Normal bowel sounds are audible. No tenderness on palpation specifically over McBurney's point. Extremities: No clubbing, cyanosis, or edema. 2+ pulses in all 4 extremities. No calf tenderness on palpation. Back: No costovertebral angle tenderness to palpation. Neurologic Exam: Grossly nonfocal. Skin Exam: No rash noted. Intact skin that is warm and dry. Data Data Last Documented VS Vital Signs Date Time Temp Pulse Resp B/P (MAP) Pulse Ox O2 Delivery O2 Flow Rate FiO2 12/12/17 06:11 12/12/17 05:47 90 16 98 Room Air 12/12/17 02:47 98.9 Orders Orders Sodium Chlor 0.9% 1000 Ml Inj (Ns 1000 M (12/12/17 03:15) Promethazine Inj (Phenergan Inj) (12/12/17 03:15) Hydromorphone Pf Inj (Dilaudid Pf Inj) (12/12/17 03:30) Complete Blood Count With Diff (12/12/17 03:22) Comprehensive Metabolic Panel (12/12/17 03:22) C-Reactive Protein (Crp) (12/12/17 03:22) Lipase (12/12/17 03:22) Magnesium (Mg) (12/12/17 03:22) Iv Access Insert/Monitor (12/12/17 03:22) Ecg Monitoring (12/12/17 03:22) Oximetry (12/12/17 03:22) Lorazepam Inj (Ativan Inj) (12/12/17 04:15) Abdomen, Flat & Upright (12/12/17 04:33) Ed Urine Pregnancytest Poc (12/12/17 04:33) Sodium Chlor 0.9% 1000 Ml Inj (Ns 1000 M (12/12/17 04:45) Oral Rehydration (12/12/17 04:34) Potassium Chloride (Kcl) (12/12/17 04:45) Promethazine Inj (Phenergan Inj) (12/12/17 05:00) Ed Discharge Order (12/12/17 06:13) Labs Laboratory Tests Test 12/12/17 03:31 White Blood Count 7.0 TH/MM3 Red Blood Count 4.49 MIL/MM3 Hemoglobin 13.8 GM/DL Hematocrit 39.6 % Mean Corpuscular Volume 88.2 FL Mean Corpuscular Hemoglobin 30.8 PG Mean Corpuscular Hemoglobin Concent 34.9 % Red Cell Distribution Width 13.3 % Platelet Count 335 TH/MM3 Mean Platelet Volume 7.8 FL Neutrophils (%) (Auto) 73.4 % Lymphocytes (%) (Auto) 21.6 % Monocytes (%) (Auto) 4.2 % Eosinophils (%) (Auto) 0.3 % Basophils (%) (Auto) 0.5 % Neutrophils # (Auto) 5.1 TH/MM3 Lymphocytes # (Auto) 1.5 TH/MM3 Monocytes # (Auto) 0.3 TH/MM3 Eosinophils # (Auto) 0.0 TH/MM3 Basophils # (Auto) 0.0 TH/MM3 CBC Comment DIFF FINAL Differential Comment Blood Urea Nitrogen 12 MG/DL Creatinine 0.73 MG/DL Random Glucose 155 MG/DL Total Protein 9.2 GM/DL Albumin 5.0 GM/DL Calcium Level 9.7 MG/DL Magnesium Level 2.2 MG/DL Alkaline Phosphatase 68 U/L Aspartate Amino Transf (AST/SGOT) 15 U/L Alanine Aminotransferase (ALT/SGPT) 19 U/L Total Bilirubin 0.4 MG/DL Sodium Level 139 MEQ/L Potassium Level 3.2 MEQ/L Chloride Level 105 MEQ/L Carbon Dioxide Level 25.3 MEQ/L Anion Gap 9 MEQ/L Estimat Glomerular Filtration Rate 104 ML/MIN C-Reactive Protein LESS THAN 0.29 MG/DL Lipase 162 U/L MDM Medical Decision Making Medical Screen Exam Complete: Yes Emergency Medical Condition: Yes Medical Record Reviewed: Yes Differential Diagnosis Exacerbation of gastroparesis, versus bowel obstruction, versus viral syndrome, versus electrolyte derangements, versus dehydration Narrative Course During the course of the patient's emergency department visit, the patient's history, examination, and differential diagnosis were reviewed with the patient. The patient was placed on a community support specialist with oximetry and frequent blood pressure monitoring. The patient had IV access obtained and blood work sent for analysis. The patient was initially provided normal saline 1 L IV fluid bolus, Phenergan 25 mg IM, hydromorphone 1 mg IV. The patient reported having some improvement in her nausea, however she reported feeling anxious and was requesting Ativan, Ativan 0.5 mg IV was administered 1. The patient's electronic medical record was reviewed. The patient was last seen regarding similar complaints on June 02, 2017. At that time she did have a CT scan of the abdomen and pelvis done that was unremarkable. The patient has had multiple CT scans of the abdomen and pelvis, therefore I will attempt to avoid a CT scan of the abdomen and pelvis unless absolutely indicated. The patient's abdominal examination is benign. The patient's laboratory studies were reviewed and remarkable for a white count of 7, hemoglobin 13.8, platelets 335 with neutrophils 73.4, CMP is remarkable for potassium of 3.2 which was supplemented orally, glucose 155, C-reactive protein less than 0.29, lipase 162 Radiology studies were reviewed and remarkable for an abdominal flat and upright that reveals a nonspecific bowel gas pattern, no evidence of free air or signs of obstruction. The patient was able to tolerate p.o. intake. The patient will be discharged home to follow-up with a plating and point assembly supervisor. She was given the name of the plating and point assembly supervisor child protection specialist as she reports that she no longer has a plating and point assembly supervisor. The patient was given the name of Dr. Flores for follow- up. She was also instructed to follow-up with her primary care physician. She was instructed to call the office in the morning regarding this emergency department visit for follow-up in the next 2 days. The patient will be given a prescription for Phenergan suppositories to be taken as needed for nausea vomiting. The patient is resting comfortably and feels better, is alert and in no distress. The patient's results and examination findings were discussed with the patient. The repeat examination is unremarkable and benign. The history, exam, diagnostic testing, and current condition do not suggest any significant pathology to warrant further testing, continued ED treatment, admission, or surgical evaluation at this point. The vital signs have been stable. The patient does not have uncontrollable pain, intractable vomiting, or other significant symptoms. The patient's condition is stable and appropriate for discharge. The patient will pursue further outpatient evaluation with a primary care physician or other designated or consulting physician as indicated in the discharge instructions. The patient expressed understanding and was agreeable with this plan. Diagnosis Primary Impression: Nausea & vomiting Qualified Codes: R11.2 - Nausea with vomiting, unspecified Additional Impression: Chronic abdominal pain Referrals: Abhijit Flores MD call for appointment Primary Care Physician 2 days Patient Instructions: Abdominal Pain (ED), Acute Nausea and Vomiting (ED), General Instructions Med/Other Pt SpecificInfo: Prescription(s) given Scripts Promethazine Supp (Phenergan Supp) 25 Mg Supp 25 MG RECTAL Q6H Y for NAUSEA OR VOMITING, #10 SUPP 0 Refills Prov: Charo Mata MD 12/12/17 Disposition: 01 DISCHARGE HOME Condition: Stable Charo Mata MD Dec 12, 2017 03:02
[2017-12-12] MEDS ORDERED: PROMETHAZINE INJ 25 MG/ML VIAL IM ONE ×2 (03:15→05:00)
[2017-12-12] MEDS ORDERED: HYDROmorphone HCL PF 1 MG/ML VIAL IV PUSH ONE (03:15)
[2017-12-12] MEDS ORDERED: SODIUM CHLOR 0.9% 1000 ML INJ 1,000 ML IV ONE ×2 (03:15→04:45)
[2017-12-12] MEDS ORDERED: HYDROmorphone HCL PF 2 MG/ML VIAL IV PUSH ONE (03:30)
[2017-12-12 03:36] VITALS: O2SAT 95
[2017-12-12 03:37] VITALS: BP 132/76; PULSE 112; RESP 18; O2SAT 98
[2017-12-12 03:48] LABS: AUTOMATED NEUTROPHIL # 5.1 TH/MM3 (1.8-7.7); BASOPHIL % 0.5 % (0.0-2.0); EOSINOPHIL % 0.3 % (0.0-4.0); HEMATOCRIT 39.6 % (35.0-46.0); HEMOGLOBIN 13.8 GM/DL (11.6-15.3); LYMPH % 21.6 % (9.0-44.0); LYMPHOCYTE # 1.5 TH/MM3 (1.0-4.8); MEAN CELL VOLUME 88.2 FL (80.0-100.0); MEAN CORPUSCULAR HEMOGLOBIN 30.8 PG (27.0-34.0); MEAN CORPUSCULAR HGB CONC 34.9 % (32.0-36.0); MEAN PLATELET VOLUME 7.8 FL (7.0-11.0); MONO % 4.2 % (0.0-8.0); MONOCYTE # 0.3 TH/MM3 (0-0.9); NEUT % 73.4 % (16.0-70.0); PLATELET COUNT 335 TH/MM3 (150-450); RED BLOOD COUNT 4.49 MIL/MM3 (4.00-5.30); RED CELL DISTRIBUTION WIDTH 13.3 % (11.6-17.2)
[2017-12-12 04:01] LABS: AST (GOT) 15 U/L (15-37); BICARBONATE 25.3 MEQ/L (21.0-32.0); BLOOD UREA NITROGEN 12 MG/DL (7-18); CALCIUM 9.7 MG/DL (8.5-10.1); CHLORIDE 105 MEQ/L (98-107); CREATININE 0.73 MG/DL (0.50-1.00); GLOMERULAR FILTRATION RATE 104 ML/MIN (>89); GLUCOSE,RANDOM 155 MG/DL (74-106); MAGNESIUM 2.2 MG/DL (1.5-2.5); SODIUM (NA) 139 MEQ/L (136-145)
[2017-12-12 04:04] LABS: ALKALINE PHOSPHATASE 68 U/L (45-117); ALT (GPT) 19 U/L (10-53); C-REACTIVE PROTEIN LESS THAN 0.29 MG/DL (0.00-0.30); TOTAL BILIRUBIN ADULT 0.4 MG/DL (0.2-1.0); TOTAL PROTEIN 9.2 GM/DL (6.4-8.2)
[2017-12-12] MEDS ORDERED: LORazepam 2 MG/ML VIAL IV PUSH ONE (04:15)
[2017-12-12] MEDS ORDERED: POTASSIUM CHLORIDE 20 MEQ CONTROLLED RELEASE TAB PO ONE (04:45)
[2017-12-12] MEDS ORDERED: PROM1SUP7 RECTAL (05:38)
[2017-12-12 05:47] VITALS: BP 132/90; PULSE 90; RESP 16; O2SAT 98
--- NOTE | 2017-12-12 06:13 | RADRPT ---
EXAM DATE/TIME: 12/12/2017 05:21 [place] COMPARISON: No previous studies available for comparison. INDICATIONS : Abdominal pain and vomiting x 1 day MEDICAL HISTORY : Gastroperesis, Uterine Fibroids SURGICAL HISTORY : Hysterectomy. Tubal ligation. ENCOUNTER: Initial ACUITY: 1 day PAIN SCORE: 7/10 LOCATION: Bilateral chest FINDINGS: Supine and upright views of the abdomen were performed. The abdominal bowel gas pattern is normal. No air fluid levels are seen. No abnormal masses, calcifications, or organomegaly is seen. The visu alized lower lungs are clear. No evidence of free intraperitoneal gas. Small phleboliths in the pelv is. The osseous structures are unremarkable. CONCLUSION: 1. Nonobstructive bowel gas pattern. Segun Cline MD on December 12, 2017 at 6:11 Board Certified Radiologist. This report was verified electronically.
== END 2017-12-12 06:14 | disposition home or self-care (01) ==
LOC: NEPE 02:43
DX: R11.2 Nausea with vomiting, unspecified (principal); G89.29 Other chronic pain; F17.200 Nicotine dependence, unspecified, uncomplicated
CPT/HCPCS: 74019; 80053; 83690; 83735; 85025; 86140; 96372; 96374; 96375; 99284; J1170; J2060; J2550; J7030

== ENCOUNTER 2018-01-18 16:08 | Emergency (ER) | payer SELFPAY ==
[~2018-01-18 16:08] MED LIST changes: +PROM1SUP7 RECTAL
[2018-01-18] MEDS ORDERED: IOHEXOL 350 MG/ML 10 ML VIAL (for RAD DIAG) IVCONTRAST ONE (16:09)
[2018-01-18 16:20] VITALS: BP 148/93; PULSE 77; RESP 24; TEMP 99.9
[2018-01-18] MEDS ORDERED: SODIUM CHLOR 0.9% 1000 ML INJ 1,000 ML IV SCH (17:04)
[2018-01-18] MEDS ORDERED: HYDROmorphone HCL PF 1 MG/ML VIAL IVS ONE (17:15)
[2018-01-18] MEDS ORDERED: HYDROmorphone HCL PF 2 MG/ML VIAL IV ONE (17:45)
[2018-01-18] MEDS ORDERED: PROMETHAZINE INJ 25 MG/ML VIAL IM ONE ×2 (17:45→19:30)
[2018-01-18 18:51] LABS: AUTOMATED NEUTROPHIL # 6.3 TH/MM3 (1.8-7.7); BASOPHIL % 0.1 % (0.0-2.0); HEMATOCRIT 39.7 % (35.0-46.0); HEMOGLOBIN 13.5 GM/DL (11.6-15.3); LYMPH % 12.3 % (9.0-44.0); LYMPHOCYTE # 0.9 TH/MM3 (1.0-4.8); MEAN CELL VOLUME 88.8 FL (80.0-100.0); MEAN CORPUSCULAR HEMOGLOBIN 30.2 PG (27.0-34.0); MEAN PLATELET VOLUME 8.6 FL (7.0-11.0); MONO % 1.7 % (0.0-8.0); MONOCYTE # 0.1 TH/MM3 (0-0.9); NEUT % 85.9 % (16.0-70.0); PLATELET COUNT 274 TH/MM3 (150-450); RED BLOOD COUNT 4.47 MIL/MM3 (4.00-5.30); RED CELL DISTRIBUTION WIDTH 12.8 % (11.6-17.2); WHITE BLOOD COUNT 7.3 TH/MM3 (4.0-11.0)
[2018-01-18 19:09] LABS: ALBUMIN 4.8 GM/DL (3.4-5.0); ALT (GPT) 21 U/L (10-53); AST (GOT) 20 U/L (15-37); BICARBONATE 25.4 MEQ/L (21.0-32.0); BLOOD UREA NITROGEN 13 MG/DL (7-18); CALCIUM 9.6 MG/DL (8.5-10.1); CHLORIDE 106 MEQ/L (98-107); CREATININE 0.79 MG/DL (0.50-1.00); GLOMERULAR FILTRATION RATE 95 ML/MIN (>89); GLUCOSE,RANDOM 132 MG/DL (74-106); SODIUM (NA) 140 MEQ/L (136-145)
[2018-01-18 19:12] LABS: ALKALINE PHOSPHATASE 66 U/L (45-117); TOTAL BILIRUBIN ADULT 0.3 MG/DL (0.2-1.0)
[2018-01-18] MEDS ORDERED: diphenhydrAMINE HCL 50 MG/ML VIAL IV PUSH ONE (19:30)
--- NOTE | 2018-01-18 19:49 | PD ---
HPI Chief Complaint: Abdominal Pain Time Seen by Provider: 17:01 Travel History International Travel<30 days: No Contact w/Intl Traveler<30days: No Traveled to known affect area: No History of Present Illness HPI 47-year-old female that presents to the ED for evaluation of abdominal pain and nausea and vomiting. Per patient she has had this abdominal pain nausea and vomiting since 6:00 this morning. Per patient is not going away. She try to take her own Lortabs for pain with no improvement. Patient has a history of chronic abdominal pain secondary to adhesions. Patient currently takes pain medications. History is a little bit limited as patient does appear to be in a lot of discomfort and can barely get any history from her because she does appear to be dry heaving and cannot really assess her well as she would not lay down on her back secondary to discomfort. She rates her pain 10 out of 10. She denies any recent surgeries or scans. No other medical issues at this time. Again history is a little bit limited because of patient's current discomfort. PFSH Past Medical History Arthritis: No Asthma: No Autoimmune Disease: No Blood Disorders: No Anxiety: Yes Depression: No Heart Rhythm Problems: Yes ('FAST HEART RATE") Cancer: Yes (CERVICAL PRE-CANCEROUS) Cardiovascular Problems: Yes High Cholesterol: No Chemotherapy: No Chest Pain: No Congestive Heart Failure: No COPD: No Cerebrovascular Accident: No Diabetes: No Diminished Hearing: No Endocrine: No Gastrointestinal Disorders: Yes (GASTROPARESIS ) GERD: Yes Glaucoma: No Genitourinary: No Headaches: Yes Hepatitis: No Hiatal Hernia: Yes Heparin Induced Thrombocytopen: No Hypertension: Yes Immune Disorder: No Implanted Vascular Access Dvce: No Musculoskeletal: Yes (BACK PAIN, ) Neurologic: Yes (MIGRAINES) Psychiatric: Yes Reproductive: Yes (FIBROIDS, PRECANCEROUS CELLS, HAD COMPLETE HYSTERECTOMY) Respiratory: Yes (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) Immunizations Current: No Migraines: Yes (last over 1 year ago.) Myocardial Infarction: No Radiation Therapy: No Seizures: No Sickle Cell Disease: No Sleep Apnea: No Thyroid Disease: No Ulcer: No PNEUMOCCOCAL Vaccine (Year): 2 ?: Not : 3 Para: 3 Ovarian Cysts: Yes Tubal Ligation: Yes Past Surgical History Abdominal Surgery: Yes (UTERINE FIBROIDS) AICD: No Appendectomy: No Arteriovenous Shunt: No Cardiac Surgery: No Cholecystectomy: No Ear Surgery: No Endocrine Surgery: No Eye Surgery: No Genitourinary Surgery: No Gynecologic Surgery: Yes (HYSTERECTOMY, TUBAL LIGATION ) Hysterectomy: Yes Insulin Pump: No Joint Replacement: No Neurologic Surgery: No Oral Surgery: No Pacemaker: No Thoracic Surgery: No Other Surgery: Yes (HEMORRHOID,ADHESIONS,HAND,POLYPS) Social History Alcohol Use: Yes (SOCIALLY) Tobacco Use: Yes (1 PPD) Substance Use: No Allergies-Medications (Allergen,Severity, Reaction): Coded Allergies: metoclopramide (Unverified Allergy, Severe, ITCH, 12/12/17) ondansetron (Unverified Allergy, Severe, TONGUE SWELLING, 12/12/17) prochlorperazine (Unverified Adverse Reaction, Severe, DYSTONIA, 12/12/17) Reported Meds & Prescriptions Reported Meds & Active Scripts Active Phenergan (Promethazine HCl) 25 Mg Tablet 25 Mg PO Q6H PRN Phenergan Supp (Promethazine HCl) 25 Mg Supp 25 Mg RECTAL Q4H PRN Phenergan Supp (Promethazine HCl) 25 Mg Supp 25 Mg RECTAL Q6H PRN Phenergan (Promethazine HCl) 25 Mg Tablet 12.5 Mg PO Q6H PRN Reported Omeprazole 40 Mg Cap 40 Mg PO DAILY Sumatriptan (Sumatriptan Succinate) 25 Mg Tab 25 Mg PO ONCE PRN If a satisfactory response has not been obtained at 2 hours, a second dose may be administered Norvasc (Amlodipine Besylate) 10 Mg Tab 10 Mg PO DAILY Xanax (Alprazolam) 0.5 Mg Tab 0.5 Mg PO Q4H PRN Hydrocodone-Acetaminophen 10-325 mg Tab 1 Tab PO Q4H PRN Review of Systems ROS Limitations: Uncooperative Physical Exam Exam Limitations: Uncooperative Narrative GENERAL: SKIN: Warm and dry. HEAD: Atraumatic. Normocephalic. EYES: Pupils equal and round. No scleral icterus. No injection or drainage. ENT: No nasal bleeding or discharge. Mucous membranes pink and moist. Tongue is midline. No uvula deviation. NECK: Trachea midline. No JVD. CARDIOVASCULAR: Regular rate and rhythm. No murmurs, S3, S4. RESPIRATORY: No accessory muscle use. Clear to auscultation. Breath sounds equal bilaterally. GASTROINTESTINAL: Abdomen soft, tender throughout, nondistended. Hepatic and splenic margins not palpable. MUSCULOSKELETAL: Extremities without clubbing, cyanosis, or edema. No obvious deformities. Full range of motion of the upper and lower extremities bilaterally. 2+ pulses bilaterally. NEUROLOGICAL: Awake and alert. No obvious cranial nerve deficits. Motor grossly within normal limits. Five out of 5 muscle strength in the arms and legs. Normal speech. PSYCHIATRIC: Appropriate mood and affect; insight and judgment normal. Data Data Last Documented VS Vital Signs Date Time Temp Pulse Resp B/P (MAP) Pulse Ox O2 Delivery O2 Flow Rate FiO2 01/18/18 16:20 99.9 77 24 148/93 (111) Orders Orders Complete Blood Count With Diff (01/18/18 17:04) Comprehensive Metabolic Panel (01/18/18 17:04) Lipase (01/18/18 17:04) Lactic Acid (01/18/18 17:04) Urinalysis - C+S If Indicated (01/18/18 17:04) Ct Abd/Pel W Iv Contrast(Rout) (01/18/18 17:04) Iv Access Insert/Monitor (01/18/18 17:04) Sodium Chlor 0.9% 1000 Ml Inj (Ns 1000 M (01/18/18 17:04) Hydromorphone Pf Inj (Dilaudid Pf Inj) (01/18/18 17:45) Promethazine Inj (Phenergan Inj) (01/18/18 17:45) Promethazine Inj (Phenergan Inj) (01/18/18 19:30) Diphenhydramine Inj (Benadryl Inj) (01/18/18 19:30) Iohexol 350 Inj (Omnipaque 350 Inj) (01/18/18 16:09) Ketorolac Inj (Toradol Inj) (01/18/18 20:45) Ed Discharge Order (01/18/18 20:46) Labs Laboratory Tests Test 01/18/18 18:25 White Blood Count 7.3 TH/MM3 Red Blood Count 4.47 MIL/MM3 Hemoglobin 13.5 GM/DL Hematocrit 39.7 % Mean Corpuscular Volume 88.8 FL Mean Corpuscular Hemoglobin 30.2 PG Mean Corpuscular Hemoglobin Concent 34.0 % Red Cell Distribution Width 12.8 % Platelet Count 274 TH/MM3 Mean Platelet Volume 8.6 FL Neutrophils (%) (Auto) 85.9 % Lymphocytes (%) (Auto) 12.3 % Monocytes (%) (Auto) 1.7 % Eosinophils (%) (Auto) 0.0 % Basophils (%) (Auto) 0.1 % Neutrophils # (Auto) 6.3 TH/MM3 Lymphocytes # (Auto) 0.9 TH/MM3 Monocytes # (Auto) 0.1 TH/MM3 Eosinophils # (Auto) 0.0 TH/MM3 Basophils # (Auto) 0.0 TH/MM3 CBC Comment DIFF FINAL Differential Comment Blood Urea Nitrogen 13 MG/DL Creatinine 0.79 MG/DL Random Glucose 132 MG/DL Total Protein 9.0 GM/DL Albumin 4.8 GM/DL Calcium Level 9.6 MG/DL Alkaline Phosphatase 66 U/L Aspartate Amino Transf (AST/SGOT) 20 U/L Alanine Aminotransferase (ALT/SGPT) 21 U/L Total Bilirubin 0.3 MG/DL Sodium Level 140 MEQ/L Potassium Level 3.9 MEQ/L Chloride Level 106 MEQ/L Carbon Dioxide Level 25.4 MEQ/L Anion Gap 9 MEQ/L Estimat Glomerular Filtration Rate 95 ML/MIN Lactic Acid Level 1.2 mmol/L Lipase 91 U/L [facility] Medical Decision Making Medical Screen Exam Complete: Yes Emergency Medical Condition: Yes Medical Record Reviewed: Yes Interpretation(s) CBC & BMP Diagram 01/18/18 18:25 Total Protein 9.0 H, Albumin 4.8, Calcium Level 9.6, Alkaline Phosphatase 66, Aspartate Amino Transf (AST/SGOT) 20, Alanine Aminotransferase (ALT/SGPT) 21, Total Bilirubin 0.3 Last Impressions Abdomen/Pelvis CT 01/18/18 1704 Signed Impressions: Service Date/Time: Thursday, January 18, 2018 19:51 - CONCLUSION: Negative reviewed process. I don't see stone or obstruction Multiple phleboliths in the pelvis that could obscure a tiny stone. Rashad Jaramillo MD FACR Differential Diagnosis Abdominal pain versus nausea and vomiting versus intractable nausea and vomiting versus chronic pain versus acute on chronic pain versus acute abdomen Narrative Course 47-year-old female that presents to the ED for evaluation of abdominal pain and nausea and vomiting. Patient was properly examined and was found to have signs and symptoms of unclear etiology at this time. Was able to review her medical records since she has been here a couple times for the same. She was seen here once in November for similar. Labs and imaging were ordered. Labs and images were essentially unremarkable here. Patient did have improvement of symptoms with medications. She had to be given Benadryl as well as another dose of Phenergan with better improvement. My attending recommend the p.o. challenge. P.o. challenge successful patient can go home. Patient will be given prescriptions for Phenergan suppositories as well as p.o. medications. Told to follow closely with her GI specialist. My attending himself evaluated the patient and agrees with plan. See ED if worst. F/u with PCP. Diagnosis Primary Impression: Nausea & vomiting Qualified Codes: R11.2 - Nausea with vomiting, unspecified Additional Impression: Abdominal pain Qualified Codes: R10.84 - Generalized abdominal pain Referrals: Adriana Faust MD Patient Instructions: General Instructions, Narcotic given in the ED Additional Instructions: Take medications as prescribed. Follow with her primary care doctor for further evaluation. Follow with your GI specialist for further eval. See ED worsening symptoms. Med/Other Pt SpecificInfo: Prescription(s) given Scripts Promethazine (Phenergan) 25 Mg Tablet 25 MG PO Q6H Y for NAUSEA OR VOMITING, #20 TAB 0 Refills Prov: Niall James MD 01/18/18 Promethazine Supp (Phenergan Supp) 25 Mg Supp 25 MG RECTAL Q4H Y for NAUSEA OR VOMITING, #20 SUPP 0 Refills Prov: Niall James MD 01/18/18 Disposition: 01 DISCHARGE HOME Condition: Stable Sherif Patel Jan 18, 2018 19:49
--- NOTE | 2018-01-18 20:22 | RADRPT ---
EXAM DATE/TIME: 01/18/2018 19:51 [facility] COMPARISON: CT ABDOMEN & PELVIS W CONTRAST, June 02, 2017, 19:08. INDICATIONS : Left side abdominal pain with vomiting. IV CONTRAST: 80 cc Omnipaque 350 (iohexol) IV ORAL CONTRAST: No oral contrast ingested. RADIATION DOSE: 7.04 CTDIvol (mGy) MEDICAL HISTORY : Gastroparesis. Hernia, hiatal. Cardiovascular diseaseGERD. SURGICAL HISTORY : Hysterectomy. ENCOUNTER: Initial ACUITY: 1 day PAIN SCALE: 10/10 LOCATION: Left abdomen. TECHNIQUE: Volumetric scanning of the abdomen and pelvis was performed. Using automated exposure control and ad justment of the mA and/or kV according to patient size, radiation dose was kept as low as reasonably achievable to obtain optimal diagnostic quality images. DICOM format image data is available electro nically for review and comparison. FINDINGS: Lower lungs are clear. Liver and spleen are unremarkable Pancreas and adrenal glands are remarkable. There is symmetrical renal function There is no ascites or adenopathy The pelvic contents are unremarkable Previous described left renal stone is not evident. Review of bone windows reveals mild degenerative changes in the lumbar spine. CONCLUSION: Negative reviewed process. I don't see stone or obstruction Multiple phleboliths in the pelvis that could obscure a tiny stone. Rashad Jaramillo MD FACR on January 18, 2018 at 20:17 Board Certified Radiologist. This report was verified electronically.
--- NOTE | 2018-01-18 20:39 | PD ---
Data Data Last Documented VS Vital Signs Date Time Temp Pulse Resp B/P (MAP) Pulse Ox O2 Delivery O2 Flow Rate FiO2 01/18/18 16:20 99.9 77 24 148/93 (111) Orders Orders Complete Blood Count With Diff (01/18/18 17:04) Comprehensive Metabolic Panel (01/18/18 17:04) Lipase (01/18/18 17:04) Lactic Acid (01/18/18 17:04) Ct Abd/Pel W Iv Contrast(Rout) (01/18/18 17:04) Iv Access Insert/Monitor (01/18/18 17:04) Sodium Chlor 0.9% 1000 Ml Inj (Ns 1000 M (01/18/18 17:04) Hydromorphone Pf Inj (Dilaudid Pf Inj) (01/18/18 17:45) Promethazine Inj (Phenergan Inj) (01/18/18 17:45) Promethazine Inj (Phenergan Inj) (01/18/18 19:30) Diphenhydramine Inj (Benadryl Inj) (01/18/18 19:30) Iohexol 350 Inj (Omnipaque 350 Inj) (01/18/18 16:09) Ketorolac Inj (Toradol Inj) (01/18/18 21:15) Ed Discharge Order (01/18/18 20:46) Acetaminophen (Tylenol) (01/18/18 22:30) Labs Laboratory Tests Test 01/18/18 18:25 White Blood Count 7.3 TH/MM3 Red Blood Count 4.47 MIL/MM3 Hemoglobin 13.5 GM/DL Hematocrit 39.7 % Mean Corpuscular Volume 88.8 FL Mean Corpuscular Hemoglobin 30.2 PG Mean Corpuscular Hemoglobin Concent 34.0 % Red Cell Distribution Width 12.8 % Platelet Count 274 TH/MM3 Mean Platelet Volume 8.6 FL Neutrophils (%) (Auto) 85.9 % Lymphocytes (%) (Auto) 12.3 % Monocytes (%) (Auto) 1.7 % Eosinophils (%) (Auto) 0.0 % Basophils (%) (Auto) 0.1 % Neutrophils # (Auto) 6.3 TH/MM3 Lymphocytes # (Auto) 0.9 TH/MM3 Monocytes # (Auto) 0.1 TH/MM3 Eosinophils # (Auto) 0.0 TH/MM3 Basophils # (Auto) 0.0 TH/MM3 CBC Comment DIFF FINAL Differential Comment Blood Urea Nitrogen 13 MG/DL Creatinine 0.79 MG/DL Random Glucose 132 MG/DL Total Protein 9.0 GM/DL Albumin 4.8 GM/DL Calcium Level 9.6 MG/DL Alkaline Phosphatase 66 U/L Aspartate Amino Transf (AST/SGOT) 20 U/L Alanine Aminotransferase (ALT/SGPT) 21 U/L Total Bilirubin 0.3 MG/DL Sodium Level 140 MEQ/L Potassium Level 3.9 MEQ/L Chloride Level 106 MEQ/L Carbon Dioxide Level 25.4 MEQ/L Anion Gap 9 MEQ/L Estimat Glomerular Filtration Rate 95 ML/MIN Lactic Acid Level 1.2 mmol/L Lipase 91 U/L MDM Supervised Visit with TAMMY: Yes Narrative Course I, Dr. James, have reviewed the advance practice practitioner's documentation and am in agreement, met with the patient face to face, made the diagnosis, and the medical decision making was done by me. *My assessment and Findings: There is a 47-year-old female with a history of chronic abdominal pain presents emergency department for nausea and vomiting. She states that she tried some Phenergan at home without significant relief. She has not vomited once since I inherited her care at the 1900 shift change. She only complained of some mild abdominal pain for me and I did order some additional Toradol for her. She stated that she would like to try some rm angel and is tolerated 8 ounces. At this time I recommended for her discharge to follow-up with her regular physicians and discuss return to ED criteria. She is understanding and agreeable. Scripts Promethazine (Phenergan) 25 Mg Tablet 25 MG PO Q6H Y for NAUSEA OR VOMITING, #20 TAB 0 Refills Prov: Niall James MD 01/18/18 Promethazine Supp (Phenergan Supp) 25 Mg Supp 25 MG RECTAL Q4H Y for NAUSEA OR VOMITING, #20 SUPP 0 Refills Prov: Niall James MD 01/18/18 Condition: Stable Niall James MD Jan 18, 2018 20:39
[2018-01-18] MEDS ORDERED: PROM25TA10 PO (20:43)
[2018-01-18] MEDS ORDERED: PROM1SUP7 RECTAL (20:43)
[2018-01-18] MEDS ORDERED: KETOROLAC TROMETHAMINE 30 MG/ML (IVP) VIAL IV PUSH ONE (21:15)
[2018-01-18] MEDS ORDERED: ACETAMINOPHEN 500 MG CPLT PO ONE (22:30)
== END 2018-01-18 22:31 | disposition home or self-care (01) ==
LOC: NEPE 16:08
DX: R11.2 Nausea with vomiting, unspecified (principal); R10.84 Generalized abdominal pain; I10 Essential (primary) hypertension; K21.9 Gastro-esophageal reflux disease without esophagitis; K31.84 Gastroparesis; F17.200 Nicotine dependence, unspecified, uncomplicated
CPT/HCPCS: 74177; 80053; 83605; 83690; 85025; 96361; 96372; 96374; 96375; 99285; J1170; J1200; J1885; J2550; J7030; Q9967

== ENCOUNTER 2018-02-18 16:50 | Observation (INO) | payer SELFPAY ==
[~2018-02-18] VITALS: Ht 172.7 cm; Wt 70.0 kg
[2018-02-18 16:56] VITALS: BP 159/117; PULSE 76; RESP 21; TEMP 99.2; O2SAT 100
[2018-02-18] MEDS ORDERED: SODIUM CHLOR 0.9% 1000 ML INJ 1,000 ML IV SCH (17:15)
[2018-02-18] MEDS ORDERED: SODIUM CHLORIDE 0.9% FLUSH 10 ML FLUSH IV FLUSH PRN ×2 (17:15→23:00)
[2018-02-18] MEDS ORDERED: KETOROLAC TROMETHAMINE 60 MG/2 ML (IM) VIAL IM ONE (17:15)
--- NOTE | 2018-02-18 17:19 | PD ---
HPI Chief Complaint: GI Complaint Time Seen by Provider: 17:00 Travel History International Travel<30 days: No Contact w/Intl Traveler<30days: No Traveled to known affect area: No History of Present Illness HPI 47-year-old female with history of chronic abdominal and back pain, presents emergency department for evaluation of left lower quadrant abdominal pain with associated nausea and vomiting. Pt has been seen several times in the ED for this. Reports that severe, constant. Patient states that she takes [place] for this. She took 4 this morning with no relief of her symptoms. She reports the pain is sharp, stabbing, left lower abdominal pain. She has been urinating without difficulty. Her last bowel movement was today without difficulty. Denies any fever chills. She reports marijuana use Patient has no other symptoms to report. PFSH Past Medical History Arthritis: No Asthma: No Autoimmune Disease: No Blood Disorders: No Anxiety: Yes Depression: No Heart Rhythm Problems: Yes ('FAST HEART RATE") Cancer: Yes (CERVICAL PRE-CANCEROUS) Cardiovascular Problems: Yes High Cholesterol: No Chemotherapy: No Chest Pain: No Congestive Heart Failure: No COPD: No Cerebrovascular Accident: No Diabetes: No Diminished Hearing: No Endocrine: No Gastrointestinal Disorders: Yes (GASTROPARESIS ) GERD: Yes Glaucoma: No Genitourinary: No Headaches: Yes Hepatitis: No Hiatal Hernia: Yes Heparin Induced Thrombocytopen: No Hypertension: Yes Immune Disorder: No Implanted Vascular Access Dvce: No Musculoskeletal: Yes (BACK PAIN, ) Neurologic: Yes (MIGRAINES) Psychiatric: Yes Reproductive: Yes (FIBROIDS, PRECANCEROUS CELLS, HAD COMPLETE HYSTERECTOMY) Respiratory: Yes (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) Immunizations Current: No Migraines: Yes (last over 1 year ago.) Myocardial Infarction: No Radiation Therapy: No Seizures: No Sickle Cell Disease: No Sleep Apnea: No Thyroid Disease: No Ulcer: No PNEUMOCCOCAL Vaccine (Year): 2 ?: Not : 3 Para: 3 Ovarian Cysts: Yes Tubal Ligation: Yes Past Surgical History Abdominal Surgery: Yes (UTERINE FIBROIDS) AICD: No Appendectomy: No Arteriovenous Shunt: No Cardiac Surgery: No Cholecystectomy: No Ear Surgery: No Endocrine Surgery: No Eye Surgery: No Genitourinary Surgery: No Gynecologic Surgery: Yes (HYSTERECTOMY, TUBAL LIGATION ) Hysterectomy: Yes Insulin Pump: No Joint Replacement: No Neurologic Surgery: No Oral Surgery: No Pacemaker: No Thoracic Surgery: No Other Surgery: Yes (HEMORRHOID,ADHESIONS,HAND,POLYPS) Social History Alcohol Use: Yes (SOCIALLY) Tobacco Use: Yes (1 PPD) Substance Use: Yes (POT ) Allergies-Medications (Allergen,Severity, Reaction): Coded Allergies: metoclopramide (Unverified Allergy, Severe, ITCH, 02/18/18) ondansetron (Unverified Allergy, Severe, TONGUE SWELLING, 02/18/18) prochlorperazine (Unverified Adverse Reaction, Severe, DYSTONIA, 02/18/18) Reported Meds & Prescriptions Reported Meds & Active Scripts Active Phenergan (Promethazine HCl) 25 Mg Tablet 25 Mg PO Q6H PRN Phenergan Supp (Promethazine HCl) 25 Mg Supp 25 Mg RECTAL Q4H PRN Phenergan Supp (Promethazine HCl) 25 Mg Supp 25 Mg RECTAL Q6H PRN Phenergan (Promethazine HCl) 25 Mg Tablet 12.5 Mg PO Q6H PRN Reported Omeprazole 40 Mg Cap 40 Mg PO DAILY Sumatriptan (Sumatriptan Succinate) 25 Mg Tab 25 Mg PO ONCE PRN If a satisfactory response has not been obtained at 2 hours, a second dose may be administered Norvasc (Amlodipine Besylate) 10 Mg Tab 10 Mg PO DAILY Xanax (Alprazolam) 0.5 Mg Tab 0.5 Mg PO Q4H PRN Hydrocodone-Acetaminophen 10-325 mg Tab 1 Tab PO Q4H PRN Review of Systems Except as stated in HPI: all other systems reviewed are Neg Physical Exam Narrative GENERAL: Well-nourished female patient, tearful, and position, but appears nontoxic. SKIN: Focused skin assessment warm/dry. HEAD: Atraumatic. Normocephalic. EYES: Pupils equal and round. No scleral icterus. No injection or drainage. ENT: No nasal bleeding or discharge. Mucous membranes pink and moist. NECK: Trachea midline. No JVD. CARDIOVASCULAR: Regular rate and rhythm. No murmur appreciated. RESPIRATORY: No accessory muscle use. Clear to auscultation. Breath sounds equal bilaterally. GASTROINTESTINAL: Abdomen soft nondistended. Patient will not allow me to do full examination of her abdomen however she does report generalized tenderness to palpation. MUSCULOSKELETAL: No obvious deformities. No clubbing. No cyanosis. No edema. NEUROLOGICAL: Awake and alert. No obvious cranial nerve deficits. Motor grossly within normal limits. Normal speech. Data Data Last Documented VS Vital Signs Date Time Temp Pulse Resp B/P (MAP) Pulse Ox O2 Delivery O2 Flow Rate FiO2 02/18/18 20:00 88 18 149/85 (106) 100 Room Air 02/18/18 16:56 99.2 Orders Orders Complete Blood Count With Diff (02/18/18 17:15) Comprehensive Metabolic Panel (02/18/18 17:15) Lipase (02/18/18 17:15) Prothrombin Time / Inr (Pt) (02/18/18 17:15) Act Partial Throm Time (Ptt) (02/18/18 17:15) Urinalysis - C+S If Indicated (02/18/18 17:15) Ct Abd/Pel W Iv Contrast(Rout) (02/18/18 17:15) Iv Access Insert/Monitor (02/18/18 17:15) Ecg Monitoring (02/18/18 17:15) Oximetry (02/18/18 17:15) Sodium Chlor 0.9% 1000 Ml Inj (Ns 1000 M (02/18/18 17:15) Sodium Chloride 0.9% Flush (Ns Flush) (02/18/18 17:15) Abdomen, Upright Only (02/18/18 17:15) Ketorolac Inj (Toradol Inj) (02/18/18 17:15) Vascular Access Team Consult/P PRN (02/18/18 17:32) Vascular Poc Ultrasound (02/18/18 ) Promethazine Inj (Phenergan Inj) (02/18/18 18:00) Promethazine Inj (Phenergan Inj) (02/18/18 20:00) Morphine Inj (Morphine Inj) (02/18/18 20:15) Iohexol 350 Inj (Omnipaque 350 Inj) (02/18/18 21:28) Morphine Inj (Morphine Inj) (02/18/18 22:45) Labs Laboratory Tests Test 02/18/18 17:52 02/18/18 22:05 White Blood Count 7.9 TH/MM3 Red Blood Count 4.52 MIL/MM3 Hemoglobin 13.5 GM/DL Hematocrit 40.4 % Mean Corpuscular Volume 89.4 FL Mean Corpuscular Hemoglobin 29.9 PG Mean Corpuscular Hemoglobin Concent 33.5 % Red Cell Distribution Width 13.2 % Platelet Count 311 TH/MM3 Mean Platelet Volume 8.2 FL Neutrophils (%) (Auto) 82.8 % Lymphocytes (%) (Auto) 14.7 % Monocytes (%) (Auto) 2.2 % Eosinophils (%) (Auto) 0.1 % Basophils (%) (Auto) 0.2 % Neutrophils # (Auto) 6.5 TH/MM3 Lymphocytes # (Auto) 1.2 TH/MM3 Monocytes # (Auto) 0.2 TH/MM3 Eosinophils # (Auto) 0.0 TH/MM3 Basophils # (Auto) 0.0 TH/MM3 CBC Comment DIFF FINAL Differential Comment Prothrombin Time 10.7 SEC Prothromb Time International Ratio 1.1 RATIO Activated Partial Thromboplast Time 23.9 SEC Blood Urea Nitrogen 12 MG/DL Creatinine 0.83 MG/DL Random Glucose 145 MG/DL Total Protein 8.9 GM/DL Albumin 4.8 GM/DL Calcium Level 9.9 MG/DL Alkaline Phosphatase 68 U/L Aspartate Amino Transf (AST/SGOT) 15 U/L Alanine Aminotransferase (ALT/SGPT) 15 U/L Total Bilirubin 0.4 MG/DL Sodium Level 141 MEQ/L Potassium Level 3.5 MEQ/L Chloride Level 108 MEQ/L Carbon Dioxide Level 22.9 MEQ/L Anion Gap 10 MEQ/L Estimat Glomerular Filtration Rate 90 ML/MIN Lipase 128 U/L Urine Color YELLOW Urine Turbidity CLEAR Urine pH 6.5 Urine Specific [place] GREATER THAN 1.050 Urine Protein 30 mg/dL Urine Glucose (UA) NEG mg/dL Urine Ketones 10 mg/dL Urine Occult Blood TRACE Urine Nitrite NEG Urine Bilirubin NEG Urine Urobilinogen LESS THAN 2.0 MG/DL Urine Leukocyte Esterase NEG Urine RBC 2 /hpf Urine WBC LESS THAN 1 /hpf Urine Squamous Epithelial Cells 2 /hpf Urine Amorphous Sediment RARE Urine Mucus MOD /lpf Microscopic Urinalysis Comment CULT NOT INDICATED MDM Medical Decision Making Medical Screen Exam Complete: Yes Emergency Medical Condition: Yes Medical Record Reviewed: Yes Differential Diagnosis Exacerbation of chronic abdominal pain versus intractable nausea and vomiting versus cannabinoids induced gastroparesis versus colitis versus diverticulitis versus constipation versus UTI versus narcotic seeking Narrative Course 47-year-old female presents emergency department for evaluation of abdominal pain, more so in the left lower quadrant. Patient denies any fever chills. She is tearful appears nontoxic. She does have generalized tenderness to palpation of the abdomen. Vital signs are stable. Laboratory Tests Test 02/18/18 17:52 02/18/18 22:05 White Blood Count 7.9 TH/MM3 Red Blood Count 4.52 MIL/MM3 Hemoglobin 13.5 GM/DL Hematocrit 40.4 % Mean Corpuscular Volume 89.4 FL Mean Corpuscular Hemoglobin 29.9 PG Mean Corpuscular Hemoglobin Concent 33.5 % Red Cell Distribution Width 13.2 % Platelet Count 311 TH/MM3 Mean Platelet Volume 8.2 FL Neutrophils (%) (Auto) 82.8 % Lymphocytes (%) (Auto) 14.7 % Monocytes (%) (Auto) 2.2 % Eosinophils (%) (Auto) 0.1 % Basophils (%) (Auto) 0.2 % Neutrophils # (Auto) 6.5 TH/MM3 Lymphocytes # (Auto) 1.2 TH/MM3 Monocytes # (Auto) 0.2 TH/MM3 Eosinophils # (Auto) 0.0 TH/MM3 Basophils # (Auto) 0.0 TH/MM3 CBC Comment DIFF FINAL Differential Comment Prothrombin Time 10.7 SEC Prothromb Time International Ratio 1.1 RATIO Activated Partial Thromboplast Time 23.9 SEC Blood Urea Nitrogen 12 MG/DL Creatinine 0.83 MG/DL Random Glucose 145 MG/DL Total Protein 8.9 GM/DL Albumin 4.8 GM/DL Calcium Level 9.9 MG/DL Alkaline Phosphatase 68 U/L Aspartate Amino Transf (AST/SGOT) 15 U/L Alanine Aminotransferase (ALT/SGPT) 15 U/L Total Bilirubin 0.4 MG/DL Sodium Level 141 MEQ/L Potassium Level 3.5 MEQ/L Chloride Level 108 MEQ/L Carbon Dioxide Level 22.9 MEQ/L Anion Gap 10 MEQ/L Estimat Glomerular Filtration Rate 90 ML/MIN Lipase 128 U/L Last Impressions Abdomen/Pelvis CT 02/18/181714 Signed Impressions: Service Date/Time: Sunday, February 18, 2018 21:21 - CONCLUSION: 1. Limited examination due to excessive motion during scanning. 2. Hepatomegaly. 3. 3 mm calcified nonobstructing right renal calculus. 4. Degenerative changes and scoliosis of the thoracolumbar spine. Niall Lane MD Abdomen X-Ray 02/18/18 348 Signed Impressions: Service Date/Time: Sunday, February 18, 2018 18:03 - CONCLUSION: No evidence of free air. Braxton Badillo MD Patient does have nonobstructing renal calculi on the right. This would not explain left lower quadrant abdominal pain. Patient has been given pain control and anti-emetics. We are waiting for urinalysis to complete. UA is without acute abnormality. Pt continues to cry and request pain medication and medication for nausea and vomiting. She is given additional medication. She will be admitted observation for intractable nausea and vomiting. Diagnosis Primary Impression: Abdominal pain Qualified Codes: R10.32 - Left lower quadrant pain Additional Impression: Nausea & vomiting Qualified Codes: R11.2 - Nausea with vomiting, unspecified Referrals: [facility] Primary Care Physician Patient Instructions: Abdominal Pain (ED), General Instructions Additional Instructions: Maintain adequate oral hydration Follow-up with a primary care provider See gastroenterology evaluation Continue medication as already prescribed Return immediately with acute worsening symptoms Med/Other Pt SpecificInfo: No Change to Meds Disposition: 01 DISCHARGE HOME Condition: Stable Yaa Nick February 18, 2018 17:19
[2018-02-18] MEDS ORDERED: PROMETHAZINE INJ 25 MG/ML VIAL IM ONE ×2 (18:00→20:00)
[2018-02-18 18:24] LABS: AUTOMATED NEUTROPHIL # 6.5 TH/MM3 (1.8-7.7); BASOPHIL % 0.2 % (0.0-2.0); EOSINOPHIL % 0.1 % (0.0-4.0); HEMATOCRIT 40.4 % (35.0-46.0); HEMOGLOBIN 13.5 GM/DL (11.6-15.3); LYMPH % 14.7 % (9.0-44.0); LYMPHOCYTE # 1.2 TH/MM3 (1.0-4.8); MEAN CELL VOLUME 89.4 FL (80.0-100.0); MEAN CORPUSCULAR HEMOGLOBIN 29.9 PG (27.0-34.0); MEAN CORPUSCULAR HGB CONC 33.5 % (32.0-36.0); MEAN PLATELET VOLUME 8.2 FL (7.0-11.0); MONO % 2.2 % (0.0-8.0); MONOCYTE # 0.2 TH/MM3 (0-0.9); NEUT % 82.8 % (16.0-70.0); PLATELET COUNT 311 TH/MM3 (150-450); RED BLOOD COUNT 4.52 MIL/MM3 (4.00-5.30); RED CELL DISTRIBUTION WIDTH 13.2 % (11.6-17.2); WHITE BLOOD COUNT 7.9 TH/MM3 (4.0-11.0)
[2018-02-18 18:38] LABS: ALBUMIN 4.8 GM/DL (3.4-5.0); AST (GOT) 15 U/L (15-37); BICARBONATE 22.9 MEQ/L (21.0-32.0); BLOOD UREA NITROGEN 12 MG/DL (7-18); CALCIUM 9.9 MG/DL (8.5-10.1); CHLORIDE 108 MEQ/L (98-107); CREATININE 0.83 MG/DL (0.50-1.00); GLOMERULAR FILTRATION RATE 90 ML/MIN (>89); GLUCOSE,RANDOM 145 MG/DL (74-106); SODIUM (NA) 141 MEQ/L (136-145)
[2018-02-18 18:42] LABS: INTERNATIONAL NORMALIZED RATIO 1.1 RATIO; PROTHROMBIN TIME - PATIENT 10.7 SEC (9.8-11.6)
[2018-02-18 18:43] LABS: ALKALINE PHOSPHATASE 68 U/L (45-117); ALT (GPT) 15 U/L (10-53); TOTAL BILIRUBIN ADULT 0.4 MG/DL (0.2-1.0); TOTAL PROTEIN 8.9 GM/DL (6.4-8.2)
--- NOTE | 2018-02-18 18:59 | RADRPT ---
EXAM DATE/TIME: 02/18/2018 18:03 [facility] COMPARISON: No previous studies available for comparison. INDICATIONS : Vomiting and abdominal pain. MEDICAL HISTORY : Gastroperesis, Uterine Fibroids SURGICAL HISTORY : Hysterectomy. Tubal ligation. ENCOUNTER: Initial ACUITY: 3 days PAIN SCORE: 10/10 LOCATION: Abdomen FINDINGS: Single upright view of the abdomen. No evidence of free air. Bowel gas pattern of the upper abdomen g rossly unremarkable. Lung bases are clear. CONCLUSION: No evidence of free air. Braxton Badillo MD on February 18, 2018 at 18:57 Board Certified Radiologist. This report was verified electronically.
--- NOTE | 2018-02-18 19:04 | PD ---
Physical Exam Date Seen by Provider: February 18, 2018 Time Seen by Provider: 18:00 Narrative I, Dr. Villar, have reviewed the advance practice practitioner's documentation and am in agreement, met with the patient face to face, made the diagnosis, and the medical decision making was done by me. *My assessment and Findings: Patient seen and evaluated with nurse practitioner , please see her chart for further details. Patient coming in with abdominal pain, nausea and vomiting, and is fairly anxious on my exam. Diffusely tender but most tender in the left lower quadrant. No guarding or rebound. Laboratory Tests Test 02/18/18 17:52 Neutrophils (%) (Auto) 82.8 % (16.0-70.0) Activated Partial Thromboplast Time 23.9 SEC (24.3-30.1) Random Glucose 145 MG/DL (74-106) Total Protein 8.9 GM/DL (6.4-8.2) Chloride Level 108 MEQ/L (98-107) Last 24 hours Impressions Abdomen X-Ray 02/18/18 [id number] Signed Impressions: Service Date/Time: Sunday, February 18, 2018 18:03 - CONCLUSION: No evidence of free air. Braxton Badillo MD CAT scan was ordered for further evaluation. She was given antiemetics, IV fluids and medications for pain. Data Data Last Documented VS Vital Signs Date Time Temp Pulse Resp B/P (MAP) Pulse Ox O2 Delivery O2 Flow Rate FiO2 02/18/18 16:56 99.2 76 21 159/117 (131) 100 Orders Orders Complete Blood Count With Diff (02/18/18 17:15) Comprehensive Metabolic Panel (02/18/18 17:15) Lipase (02/18/18 17:15) Prothrombin Time / Inr (Pt) (02/18/18 17:15) Act Partial Throm Time (Ptt) (02/18/18 17:15) Urinalysis - C+S If Indicated (02/18/18 17:15) Ct Abd/Pel W Iv Contrast(Rout) (02/18/18 17:15) Iv Access Insert/Monitor (02/18/18 17:15) Ecg Monitoring (02/18/18 17:15) Oximetry (02/18/18 17:15) Sodium Chlor 0.9% 1000 Ml Inj (Ns 1000 M (02/18/18 17:15) Sodium Chloride 0.9% Flush (Ns Flush) (02/18/18 17:15) Abdomen, Upright Only (02/18/18 17:15) Ketorolac Inj (Toradol Inj) (02/18/18 17:15) Vascular Access Team Consult/P PRN (02/18/18 17:32) Vascular Poc Ultrasound (02/18/18 ) Promethazine Inj (Phenergan Inj) (02/18/18 18:00) Labs Laboratory Tests Test 02/18/18 17:52 White Blood Count 7.9 TH/MM3 Red Blood Count 4.52 MIL/MM3 Hemoglobin 13.5 GM/DL Hematocrit 40.4 % Mean Corpuscular Volume 89.4 FL Mean Corpuscular Hemoglobin 29.9 PG Mean Corpuscular Hemoglobin Concent 33.5 % Red Cell Distribution Width 13.2 % Platelet Count 311 TH/MM3 Mean Platelet Volume 8.2 FL Neutrophils (%) (Auto) 82.8 % Lymphocytes (%) (Auto) 14.7 % Monocytes (%) (Auto) 2.2 % Eosinophils (%) (Auto) 0.1 % Basophils (%) (Auto) 0.2 % Neutrophils # (Auto) 6.5 TH/MM3 Lymphocytes # (Auto) 1.2 TH/MM3 Monocytes # (Auto) 0.2 TH/MM3 Eosinophils # (Auto) 0.0 TH/MM3 Basophils # (Auto) 0.0 TH/MM3 CBC Comment DIFF FINAL Differential Comment Prothrombin Time 10.7 SEC Prothromb Time International Ratio 1.1 RATIO Activated Partial Thromboplast Time 23.9 SEC Blood Urea Nitrogen 12 MG/DL Creatinine 0.83 MG/DL Random Glucose 145 MG/DL Total Protein 8.9 GM/DL Albumin 4.8 GM/DL Calcium Level 9.9 MG/DL Alkaline Phosphatase 68 U/L Aspartate Amino Transf (AST/SGOT) 15 U/L Alanine Aminotransferase (ALT/SGPT) 15 U/L Total Bilirubin 0.4 MG/DL Sodium Level 141 MEQ/L Potassium Level 3.5 MEQ/L Chloride Level 108 MEQ/L Carbon Dioxide Level 22.9 MEQ/L Anion Gap 10 MEQ/L Estimat Glomerular Filtration Rate 90 ML/MIN Lipase 128 U/L [facility] Medical Record Reviewed: Yes Supervised Visit with TAMMY: Yes Diagnosis Primary Impression: Nausea & vomiting Jc Villar MD February 18, 2018 19:04
[2018-02-18 20:00] VITALS: BP 149/85; PULSE 88; RESP 18; O2SAT 100
[2018-02-18] MEDS ORDERED: MORPHINE SULFATE 2 MG/ML SYRINGE IV PUSH ONE ×2 (20:15→22:45)
[2018-02-18] MEDS ORDERED: IOHEXOL 350 MG/ML 10 ML VIAL (for RAD DIAG) IVCONTRAST ONE (21:28)
--- NOTE | 2018-02-18 21:49 | RADRPT ---
EXAM DATE/TIME: 02/18/2018 21:21 [facility] COMPARISON: CT ABDOMEN & PELVIS W CONTRAST, January 18, 2018, 19:51. INDICATIONS : Nausea and vomiting; possible ingestion of narcotics. IV CONTRAST: 96 cc Omnipaque 350 (iohexol) IV ORAL CONTRAST: No oral contrast ingested. RADIATION DOSE: 6.57 CTDIvol (mGy) MEDICAL HISTORY : Cardiovascular disease. Hypertension. Gastroesophageal reflux disease. SURGICAL HISTORY : Hysterectomy. ENCOUNTER: Initial ACUITY: 1 day PAIN SCALE: Non-responsive LOCATION: abdomen TECHNIQUE: Volumetric scanning of the abdomen and pelvis was performed. Using automated exposure control and ad justment of the mA and/or kV according to patient size, radiation dose was kept as low as reasonably achievable to obtain optimal diagnostic quality images. DICOM format image data is available electro nically for review and comparison. FINDINGS: LOWER LUNGS: The visualized lower lungs are clear. LIVER: Hepatomegaly is noted. Homogeneous density without lesion. There is no dilation of the biliary tree. No calcified gallstones. SPLEEN: Normal size without lesion. PANCREAS: Within normal limits. KIDNEYS: Normal in size and shape. There is no mass or hydronephrosis. 3 mm right nonobstructing right renal calculus is noted. ADRENAL GLANDS: Within normal limits. VASCULAR: There is no aortic aneurysm. BOWEL/MESENTERY: The stomach, small bowel, and colon demonstrate no acute abnormality. There is no free intraperitone al air or fluid. ABDOMINAL WALL: Within normal limits. RETROPERITONEUM: There is no lymphadenopathy. BLADDER: No wall thickening or mass. REPRODUCTIVE: Within normal limits. INGUINAL: There is no lymphadenopathy or hernia. MUSCULOSKELETAL: Degenerative changes and scoliosis of the thoracolumbar spine are noted. CONCLUSION: 1. Limited examination due to excessive motion during scanning. 2. Hepatomegaly. 3. 3 mm calcified nonobstructing right renal calculus. 4. Degenerative changes and scoliosis of the thoracolumbar spine. Niall Lane MD on February 18, 2018 at 21:43 Board Certified Radiologist. This report was verified electronically.
[2018-02-18 22:23] LABS: AMORPHOUS SEDIMENT, URINE RARE; BILIRUBIN, URINE NEG (NEG); BLOOD, URINE TRACE (NEG); GLUCOSE,URINE NEG (NEG); KETONE, URINE 10 mg/dL (NEG); MUCUS URINE MOD /lpf (OCC); NITRITE,URINE NEG (NEG); PH, URINE 6.5 (5.0-8.5); SQUAMOUS EPITHELIAL CELL URINE 2 /hpf (0-5); URINE COLOR YELLOW (YELLW/STRAW); URINE LEUKOCYTE ESTERASE NEG (NEG)
--- NOTE | 2018-02-18 22:59 | HHI.HP ---
[facility] Unknown Admission Diagnosis INTRACTABLE NAUSEA AND VOMITING Diagnoses: (1) Intractable nausea and vomiting Diagnosis: Principal (2) Migraine Diagnosis: Principal (3) Tobacco abuse Diagnosis: Principal Travel History International Travel<30 Days: No Contact w/Intl Traveler <30 Da: No Traveled to Known Affected Are: No History of Present Illness This is a 47-year-old female with a PMH of Anxiety, Migraine and Tobacco Abuse who was brought to the ER by EMS secondary to complaints of pain. Per EMS, pt had c/o abdominal pain and took 4 tablets of [place] 10/325 this morning w/ no relief, upon EMS arrival, pt noted to be lying on the floor in position, crying. History very difficult to obtain from patient as she is crying, restless, not answering many questions. SENIOR MANAGEMENT CONSULTANT states patient has been yelling/ screaming and throwing objects in her room since arrival. S/p multiple doses of Morphine and Phenergan in ER in addition to Toradol, pt noted to be sleeping , however when attempted to discharge her, pt reports severe abdominal pain and persistent nausea/vomiting. No w/ c/o headache. No vision changes, no fever, chills. BP 159/117, HR 76, O2 sat 100% on RA, Temp 99.2. CBC unremarkable. Chemistry unremarkable. LFTs normal. Lipase normal. INR 1.1. UA negative for UTI. Urine Drug Screen positive for Marijuana. Abdominal X-ray no evidence of free air. CT Abdomen/Pelvis Limited exam due to excessive motion during scan, hepatomegaly, 3 mm calcified nonobstructing right renal calculus. Review of Systems Except as stated in HPI: all other systems reviewed are Neg ROS: 14 point review of systems otherwise negative. Past Family Social History Past Medical History PMH: Anxiety, Migraine and Tobacco Abuse Past Surgical History PAST SURGICAL HISTORY: Hysterectomy, Tubal Ligation Allergies: Coded Allergies: metoclopramide (Unverified Allergy, Severe, ITCH, 02/18/18) ondansetron (Unverified Allergy, Severe, TONGUE SWELLING, 02/18/18) prochlorperazine (Unverified Adverse Reaction, Severe, DYSTONIA, 02/18/18) Family History PAST FAMILY HISTORY: Reviewed. No h/o DM or CAD Social History PAST SOCIAL HISTORY: Occasional alcohol. Positive for tobacco and Marijuana Physical Exam Vital Signs Vital Signs Date Time Temp Pulse Resp B/P (MAP) Pulse Ox O2 Delivery O2 Flow Rate FiO2 02/18/18 20:00 88 18 149/85 (106) 100 Room Air 02/18/18 16:56 99.2 76 21 159/117 (131) 100 Physical Exam PE: GENERAL: Middle aged black female writhing around in bed, tearful, crying, not answering many questions. HEENT: PERRLA, EOMI. No scleral icterus or conjunctival pallor. No lid lag or facial droop. CARDIOVASCULAR: Regular rate and rhythm. No obvious murmurs to auscultation. No chest tenderness to palpation. RESPIRATORY: No obvious rhonchi or wheezing. Clear to auscultation. Breath sounds equal bilaterally. GASTROINTESTINAL: Abdomen soft, diffuse tenderness to palpation, nondistended. BS normal. MUSCULOSKELETAL: Extremities without clubbing, cyanosis, or edema. No obvious deformities. NEUROLOGICAL: Awake, alert and oriented x4. No focal neurologic deficits. Moving both upper and lower extremities spontaneously. Laboratory Laboratory Tests Test 02/18/18 17:52 02/18/18 22:05 White Blood Count 7.9 Red Blood Count 4.52 Hemoglobin 13.5 Hematocrit 40.4 Mean Corpuscular Volume 89.4 Mean Corpuscular Hemoglobin 29.9 Mean Corpuscular Hemoglobin Concent 33.5 Red Cell Distribution Width 13.2 Platelet Count 311 Mean Platelet Volume 8.2 Neutrophils (%) (Auto) 82.8 Lymphocytes (%) (Auto) 14.7 Monocytes (%) (Auto) 2.2 Eosinophils (%) (Auto) 0.1 Basophils (%) (Auto) 0.2 Neutrophils # (Auto) 6.5 Lymphocytes # (Auto) 1.2 Monocytes # (Auto) 0.2 Eosinophils # (Auto) 0.0 Basophils # (Auto) 0.0 CBC Comment DIFF FINAL Differential Comment Prothrombin Time 10.7 Prothromb Time International Ratio 1.1 Activated Partial Thromboplast Time 23.9 Blood Urea Nitrogen 12 Creatinine 0.83 Random Glucose 145 Total Protein 8.9 Albumin 4.8 Calcium Level 9.9 Alkaline Phosphatase 68 Aspartate Amino Transf (AST/SGOT) 15 Alanine Aminotransferase (ALT/SGPT) 15 Total Bilirubin 0.4 Sodium Level 141 Potassium Level 3.5 Chloride Level 108 Carbon Dioxide Level 22.9 Anion Gap 10 Estimat Glomerular Filtration Rate 90 Lipase 128 Urine Color YELLOW Urine Turbidity CLEAR Urine pH 6.5 Urine Specific Kaplan GREATER THAN 1.050 Urine Protein 30 Urine Glucose (UA) NEG Urine Ketones 10 Urine Occult Blood TRACE Urine Nitrite NEG Urine Bilirubin NEG Urine Urobilinogen LESS THAN 2.0 Urine Leukocyte Esterase NEG Urine RBC 2 Urine WBC LESS THAN 1 Urine Squamous Epithelial Cells 2 Urine Amorphous Sediment RARE Urine Mucus MOD Microscopic Urinalysis Comment CULT NOT INDICATED Result Diagram: 02/18/18175102/18/181751 Caprini VTE Risk Assessment Caprini VTE Risk Assessment: No/Low Risk (score <= 1) Caprini Risk Assessment Model Point Value = 1 Point Value = 2 Point Value = 3 Point Value = 5 Age 41-60 Minor surgery BMI > 25 kg/m2 Swollen legs Varicose veins or History of unexplained or recurrent spontaneous Oral contraceptives or hormone replacement Sepsis (< 1 month) Serious lung disease, including pneumonia (< 1 month) Abnormal pulmonary function Acute myocardial infarction Congestive heart failure (< 1 month) History of inflammatory bowel disease Medical patient at bed rest Age 61-74 Arthroscopic surgery Major open surgery (> 45 min) Laparoscopic surgery (> 45 min) Malignancy Confined to bed (> 72 hours) Immobilizing plaster cast Central venous access Age >= 75 History of VTE Family history of VTE Factor V Leiden Prothrombin [id number] Lupus anticoagulant Anticardiolipin antibodies Elevated serum homocysteine Heparin-induced thrombocytopenia Other congenital or acquired thrombophilia Stroke (< 1 month) Elective arthroplasty Hip, pelvis, or leg fracture Acute spinal cord injury (< 1 month) Prophylaxis Regimen Total Risk Factor Score Risk Level Prophylaxis Regimen 0-1 Low Early ambulation 2 Moderate Order ONE of the following: *Sequential Compression Device (SCD) *Heparin 5000 units SQ BID 3-4 Higher Order ONE of the following medications: *Heparin 5000 units SQ TID *Enoxaparin/Lovenox 40 mg SQ daily (WT < 150 kg, CrCl > 30 mL/min) *Enoxaparin/Lovenox 30 mg SQ daily (WT < 150 kg, CrCl > 10-29 mL/min) *Enoxaparin/Lovenox 30 mg SQ BID (WT < 150 kg, CrCl > 30 mL/min) AND/OR *Sequential Compression Device (SCD) 5 or more Highest Order ONE of the following medications: *Heparin 5000 units SQ TID (Preferred with Epidurals) *Enoxaparin/Lovenox 40 mg SQ daily (WT < 150 kg, CrCl > 30 mL/min) *Enoxaparin/Lovenox 30 mg SQ daily (WT < 150 kg, CrCl > 10-29 mL/min) *Enoxaparin/Lovenox 30 mg SQ BID (WT < 150 kg, CrCl > 30 mL/min) AND *Sequential Compression Device (SCD) Assessment and Plan Problem List: (1) Intractable nausea and vomiting ICD Code: R11.2 - Nausea with vomiting, unspecified Status: Acute (2) Migraine ICD Code: G43.909 - Migraine, unspecified, not intractable, without status migrainosus Status: Acute (3) Tobacco abuse ICD Code: Z72.0 - Tobacco use Status: Acute Assessment and Plan A/P: 1. Intractable NV: h/o Gastroparesis per records, possibly compounded by Marijuana use. Abd X-ray w/ no free fluid, CT Abd/Pelvis w/ significant motion but no obvious acute pathology, images reviewed by me. S/p multiple doses of Morphine/Phenergan in ER w/ reportedly no results, although pt noted to be sleeping on few occasions. Was to be d/c'd from ER, however pt w/ recurrent c/ o nausea/vomiting and pain. Will admit for Observation. NPO, IVF, continue Phenergan prn, add Tigan prn. 2. Migraine: h/o Migraine w/ c/o headache, Benadryl/Compazine prn. 3. Tobacco Abuse: Pt counselled. NicoDerm prn if needed. 4. DVT Prophylaxis: SCDs/teds. 5. Social work for DC planning as needed. 6. Case discussed at length with the ER physician, lab/record/imaging reviewed by me. Irma Randall MD February 18, 2018 22:59
[2018-02-18] MEDS ORDERED: SENNOSIDES 8.6 MG TAB PO PRN (23:00)
[2018-02-18] MEDS ORDERED: MAGNESIUM HYDROXIDE SUSP 30 ML CUP PO PRN (23:00)
[2018-02-18] MEDS ORDERED: ALPRAZolam 0.5 MG TAB PO PRN (23:00)
[2018-02-18] MEDS ORDERED: LACTULOSE SYRUP 20 GM/30 ML CUP PO PRN (23:00)
[2018-02-18] MEDS ORDERED: BISACODYL 10 MG SUPP RECTAL PRN (23:00)
[2018-02-18] MEDS ORDERED: ACETAMINOPHEN 325 MG TAB PO PRN (23:00)
[2018-02-18] MEDS ORDERED: diphenhydrAMINE HCL 50 MG/ML VIAL IV PUSH ONE (23:15)
[2018-02-18 23:53] VITALS: BP 177/84; PULSE 94; RESP 18; TEMP 97.2; O2SAT 97
[2018-02-19] MEDS: TRIMETHOBENZAMIDE INJ 200 MG/2 ML VIAL IM PRN ×2 (00:25→08:20)
[2018-02-19] MEDS: SODIUM CHLOR 0.9% 1000 ML INJ 1,000 ML IV SCH ×3 (01:45→19:00)
[2018-02-19] MEDS ORDERED: LORazepam 2 MG/ML VIAL IV PUSH ONE (02:00)
[2018-02-19] MEDS: PROMETHAZINE INJ 25 MG/ML VIAL IM PRN ×3 (04:51→21:43)
[2018-02-19 07:17] VITALS: BP 176/92; PULSE 74; RESP 18; TEMP 98.2; O2SAT 99
[2018-02-19 08:00] LABS: AUTOMATED NEUTROPHIL # 8.7 TH/MM3 (1.8-7.7); BASOPHIL % 0.3 % (0.0-2.0); HEMATOCRIT 38.2 % (35.0-46.0); HEMOGLOBIN 12.8 GM/DL (11.6-15.3); LYMPHOCYTE # 1.9 TH/MM3 (1.0-4.8); MEAN CELL VOLUME 88.7 FL (80.0-100.0); MEAN CORPUSCULAR HEMOGLOBIN 29.6 PG (27.0-34.0); MEAN CORPUSCULAR HGB CONC 33.4 % (32.0-36.0); MEAN PLATELET VOLUME 8.5 FL (7.0-11.0); MONO % 6.4 % (0.0-8.0); MONOCYTE # 0.7 TH/MM3 (0-0.9); NEUT % 76.3 % (16.0-70.0); PLATELET COUNT 303 TH/MM3 (150-450); WHITE BLOOD COUNT 11.4 TH/MM3 (4.0-11.0)
[2018-02-19] MEDS ORDERED: KETOROLAC TROMETHAMINE 60 MG/2 ML (IM) VIAL IM ONE (08:15)
[2018-02-19] MEDS ORDERED: MORPHINE SULFATE 4 MG/ML INJ IV PUSH ONE (08:15)
--- NOTE | 2018-02-19 08:17 | HHI.PR ---
Subjective Remarks Follow up for migraine, intractable N/V, abdominal pain. Patent is uncomfortable due to nausea, vomiting, abdominal pain and migraine. No fever, chills. She reports photophobia and significant headache. Objective Vitals Vital Signs Date Time Temp Pulse Resp B/P (MAP) Pulse Ox O2 Delivery O2 Flow Rate FiO2 02/19/18 07:17 98.2 74 18 176/92 (120) 99 02/19/18 04:00 02/18/18 23:53 97.2 94 18 177/84 (115) 97 02/18/18 20:00 88 18 149/85 (106) 100 Room Air 02/18/18 16:56 99.2 76 21 159/117 (131) 100 I/O 02/18/18 02/18/18 02/18/18 02/19/18 02/19/18 02/19/18 07:00 15:00 23:00 07:00 15:00 23:00 Intake Total 1000 ml 240 ml Balance 1000 ml 240 ml Intake Oral 240 ml IV Total 1000 ml Result Diagram: 02/19/1810 02/18/18 175 Imaging Last Impressions Abdomen/Pelvis CT 02/18/181714 Signed Impressions: Service Date/Time: Sunday, February 18, 2018 21:21 - CONCLUSION: 1. Limited examination due to excessive motion during scanning. 2. Hepatomegaly. 3. 3 mm calcified nonobstructing right renal calculus. 4. Degenerative changes and scoliosis of the thoracolumbar spine. Niall Lane MD Abdomen X-Ray 02/18/181714 Signed Impressions: Service Date/Time: Sunday, February 18, 2018 18:03 - CONCLUSION: No evidence of free air. Braxton Badillo MD Objective Remarks GENERAL: Alert, crying, moving in bed due to pain. SKIN: Warm and dry. HEAD: Normocephalic. EYES: No scleral icterus. No injection or drainage. NECK: Supple, trachea midline. No JVD or lymphadenopathy. CARDIOVASCULAR: Regular rate and rhythm without murmurs, gallops, or rubs. RESPIRATORY: Breath sounds equal bilaterally. No accessory muscle use. GASTROINTESTINAL: Abdomen soft, mild diffuse tenderness, nondistended. MUSCULOSKELETAL: No cyanosis, or edema. BACK: Nontender without obvious deformity. No CVA tenderness. Procedures None. A/P Problem List: (1) Intractable nausea and vomiting ICD Code: R11.2 - Nausea with vomiting, unspecified Status: Acute (2) Migraine ICD Code: G43.909 - Migraine, unspecified, not intractable, without status migrainosus Status: Acute (3) Tobacco abuse ICD Code: Z72.0 - Tobacco use Status: Acute Assessment and Plan This is a 47-year-old female with a PMH of Anxiety, Migraine and Tobacco Abuse who was brought to the ER by EMS secondary to complaints of pain. Per EMS, pt had c/o abdominal pain and took 4 tablets of [place] 10/325 this morning w/ no relief, upon EMS arrival, pt noted to be lying on the floor in position, crying. Migraine headache Intractable nausea, vomiting Diffuse abdominal pain - GI symptoms are likely due to migraine headache - Will give patient one dose of Sumatriptan and Toradol as well as morphine. - Will consider Propranolol 20mg BID for migraine prophylaxis. - CT abd/pelvis - limited exam due to motion. However, no obvious acute pathology. Tobacco abuse - patient has been counselled. Full code. Ambulation. If symptoms improve and able to tolerate diet, we will consider discharging patient on 02/20/2018. Isaiah Stahl DO February 19, 2018 08:17
[2018-02-19 08:27] LABS: ALBUMIN 4.4 GM/DL (3.4-5.0); AST (GOT) 17 U/L (15-37); BICARBONATE 22.6 MEQ/L (21.0-32.0); BLOOD UREA NITROGEN 14 MG/DL (7-18); CALCIUM 9.4 MG/DL (8.5-10.1); CHLORIDE 111 MEQ/L (98-107); CREATININE 0.67 MG/DL (0.50-1.00); GLOMERULAR FILTRATION RATE 115 ML/MIN (>89); GLUCOSE,RANDOM 120 MG/DL (74-106); SODIUM (NA) 144 MEQ/L (136-145)
[2018-02-19 08:29] LABS: ALT (GPT) 15 U/L (10-53)
[2018-02-19 08:31] LABS: ALKALINE PHOSPHATASE 61 U/L (45-117); TOTAL BILIRUBIN ADULT 0.3 MG/DL (0.2-1.0); TOTAL PROTEIN 8.3 GM/DL (6.4-8.2)
[2018-02-19] MEDS: SODIUM CHLORIDE 0.9% FLUSH 10 ML FLUSH IV FLUSH SCH ×2 (09:00→21:00)
[2018-02-19] MEDS: DOCUSATE SODIUM 50 MG/SENNA 8.6 MG TAB PO SCH ×2 (09:00→21:00)
[2018-02-19] MEDS ORDERED: SUMAtriptan INJ 6 MG/0.5 ML VIAL SQ ONE (09:00)
[2018-02-19 12:23] VITALS: BP 138/96; PULSE 83; RESP 16; TEMP 98.1; O2SAT 98
[2018-02-19] MEDS: MORPHINE SULFATE 4 MG/ML INJ IV PRN ×2 (12:44→17:37)
[2018-02-19 16:39] VITALS: BP 142/85; PULSE 84; RESP 16; TEMP 99; O2SAT 100
[2018-02-19 20:10] VITALS: BP 141/87; PULSE 60; RESP 16; O2SAT 99
[2018-02-19] MEDS: PROPRANOLOL HCL 20 MG TAB PO SCH ×2 (23:11→23:13)
== END 2018-02-20 01:07 | disposition left against medical advice (07) ==
LOC: NEPC 16:50 → NEDA 22:55 → NEPGCP 23:38
PROVIDERS: ADMIT Hospitalist; ATTEND Hospitalist
DX: R10.32 Left lower quadrant pain (principal); G43.909 Migraine, unspecified, not intractable, without status migrainosus; R16.0 Hepatomegaly, not elsewhere classified; I10 Essential (primary) hypertension; K21.9 Gastro-esophageal reflux disease without esophagitis; F12.90 Cannabis use, unspecified, uncomplicated; K31.84 Gastroparesis; N20.0 Calculus of kidney; Z72.0 Tobacco use; Z90.710 Acquired absence of both cervix and uterus
CPT/HCPCS: 74018; 74177; 76937; 80053; 80307; 81001; 83690; 85025; 85610; 85730; 96361; 96372; 96374; 96375; 96376; 99285; G0378; J1200; J1885; J2060; J2270; J2550; J3030; J3250; J7030; Q9967